=== PATIENT | female | born 1940 | race Caucasian/White ===

== ENCOUNTER 2023-01-22 15:45 | Inpatient (IN) ==
--- NOTE | 2023-01-22 17:16 | Emergency Department Note ---
Impression & Plan Closed fracture of left hip ED Provider Note INFORMANT: Patient ED PROVIDER(S): Edward Berry DO CHIEF COMPLAINT: Left hip pain PLAN: Disposition: Admission Outpatient prescription management: none Discussion with: I spoke with the hospitalist, who will see the patient for admission/observation and further evaluation and consultation. MEDICAL DECISION MAKING: This is a 82-year-old female who presents to the ED with a chief complaint of eft hip pain after a fall. The patient states that she was doing an exercise class this afternoon around 315 and she leaned to the left to floor causing himself to fall. She landed on her left hip causing pain in that area. Denies striking her head. Denies any other areas of pain. The patient on physical exam has no obvious head injury. Neck is without tenderness. Thorax is without tenderness. Upper extremities are without any discomfort or pain. Full range of motion of the joints. No midline tenderness of the spine. Abdomen soft and nontender. Tenderness to the left hip although she does have some discomfort with rotation of the left hip. She does have full range of motion with minimal discomfort. The patient does not have any pain with axial loading. No other areas of discomfort in the lower extremities. No shortening or rotation distal perfusion is good. Vital signs are normal. X-ray of the left hip reveals a nondisplaced intertrochanteric hip fracture. Chest x-ray is clear.Blood work did not show concerning anemia, leukocytosis or electrolyte abnormality. Kidney function was normal. Triage Nursing notes reviewed. Vital Signs: reviewed Prior /Outside records reviewed: none Differential diagnosis: Soft tissue injury, fracture, dislocation, other. Diagnostics, as interpreted by me: 12 lead ECG: Sinus rhythm rate of 70. No ST elevation. No PVCs. Normal QTc. Cardiac Monitoring ordered: [none] Medical decision rules: [none] Imaging studies: Left hip and pelvis: Intertrochanteric left hip fracture nondisplaced. Chest x-ray: No acute disease. No pneumonia. No rib fracture Procedures: none. Critical care: none. HPI: See MDM above. PAST MEDICAL HISTORY: See Below PAST SURGICAL HISTORY: See Below SOCIAL HISTORY: See Below HOME MEDICATIONS: See Below ALLERGIES: See Below VITALS: See Below PHYSICAL EXAMINATION: See MDM for positive findings otherwise unremarkable. CONSTITUTIONAL/VITAL SIGNS: Reviewed GENERAL:done as appropriate INTEGUMENTARY: done as appropriate HEAD: done as appropriate EYES: done as appropriate RESPIRATORY: done as appropriate CARDIOVASCULAR:done as appropriate GI/ABDOMEN:done as appropriate EXTREMITIES: done as appropriate NEUROLOGICAL: done as appropriate PSYCHIATRIC:done as appropriate MUSCULOSKELETAL:done as appropriate TRIAGE NURSING DOCUMENTATION REVIEWED. Past Med/Surg History Medical History Vitamin D deficiency Family History Mother Hypertension Melanoma Cancer on nose Sister Tumor anal H/O kidney removal Grandmother (Maternal) Ovarian cancer Denies family history of Prostate cancer Breast cancer Colorectal cancer Social History Smoking Status: Never smoker Hx Alcohol Use: No Preferred Language: Estonian marital status: current occupational status: retired Feels Safe at Home: Yes Allergies Allergies Allergy/AdvReac Type Severity Reaction Status Date / Time codeine AdvReac Mild Verified 01/06/23 12:04 Home Meds Home Medications Medication Instructions Recorded Confirmed lysine 500 mg tablet (L-Lysine) 1,000 mg PO AMHS 05/29/22 01/22/23 zinc gluconate-zinc picolinate 30 30 mg PO QAM 05/29/22 01/22/23 mg capsule cholecalciferol (vitamin D3) 25 1,000 unit PO QAM 01/09/23 01/22/23 mcg (1,000 unit) capsule cyanocobalamin (vitamin B-12) 1,000 mcg PO 3XWK 01/22/23 01/22/23 1,000 mcg tablet (Vitamin B-12) turmeric 450 mg-turmeric root 1 cap PO QAM 01/22/23 01/22/23 extract 50 mg capsule Previous Rx's Medication Instructions Recorded Flutter Valve #1 ea 08/09/22 albuterol sulfate 90 mcg/actuation 2 inh inhalation QID PRN shortness 08/09/22 aerosol inhaler of breath or wheezing #8.5 grams potassium chloride 20 mEq 20 meq PO BID #60 tabs 10/10/22 tablet,extended release hydrochlorothiazide 25 mg tablet 25 mg PO BID #180 tabs 01/06/23 Results & Data (ED) Vital Signs Vital Signs - 24 hr 01/22/23 15:52 01/22/23 18:24 Temperature 36.7 C Temperature Source Oral Pulse Rate 74 Pulse Rate [Finger] 79 Respiratory Rate 20 18 Respiratory Effort / Characteristics Non-Labored Non-Labored Respiratory Depth Normal Normal Blood Pressure 132/84 Blood Pressure [Left Arm] 170/77 H Blood Pressure Mean 100 Blood Pressure Mean [Left Arm] 108 Pulse Oximetry 97 96 Oxygen Delivery Method Room Air Sepsis Recent Fever Within 48 Hours No Sepsis New/Unexplained Change in Mental Status No Sepsis Action Taken by Nursing No Action Required Laboratory Data 01/22/23 17:25 01/22/23 17:25 Lab Results 01/22/23 01/22/23 Range/Units 17:25 17:25 WBC 12.94 H (4.8-10.8) K/ul RBC 4.71 (4.20-5.40) M/uL Hgb 13.8 (12.0-16.0) g/dl Hct 41.0 (37.0-47.0) % MCV 87.0 (80.0-100.0) fL MCH 29.3 (25.0-34.0) pg MCHC 33.7 (32.0-36.0) g/dL RDW Std Deviation 43.8 (36.4-46.3) fL RDW Coeff of Cynthia 13.7 (11.5-14.5) % Plt Count 422 H (130-400) K/uL MPV 8.7 L (9.4-12.4) fL Immature Gran % (Auto) 0.7 % Neut % (Auto) 85.9 % Lymph % (Auto) 6.3 % [place] % (Auto) 5.1 % Eos % (Auto) 1.5 % Baso % (Auto) 0.5 % Neut # (Auto) 11.11 H (1.40-6.50) K/uL Lymph # (Auto) 0.82 L (1.2-3.4) K/uL [place] # (Auto) 0.66 H (0.11-0.59) K/uL Eos # (Auto) 0.20 (0-0.50) K/uL Baso # (Auto) 0.06 (0-0.2) K/uL Immature Gran # (Auto) 0.09 (0.01-0.20) K/uL Sodium 139 (136-145) mmol/L Potassium 3.8 (3.5-5.1) mmol/L Chloride 99 (98-107) mmol/L Carbon Dioxide 37 H (21-32) mmol/L Anion Gap 3 (3-11) BUN 25 H (6-23) mg/dl Creatinine 0.92 (0.6-1.2) mg/dl Est Cr Clr Drug Dosing 39.9 ml/min Est GFR ( Amer) 67.7 ml/min Est GFR (Non-Af Amer) 58.4 ml/min BUN/Creatinine Ratio 27.2 H (10-20) Glucose 108 H (70-99(Fasting)) mg/dl Calcium 9.4 (8.6-10.3) mg/dl Total Bilirubin 0.5 (0.2-1.0) mg/dl AST 19 (13-39) U/L ALT 18 (7-52) U/L Alkaline Phosphatase 94 (34-104) U/L Total Protein 6.3 (6.0-8.3) gm/dl Albumin 3.6 (3.4-5.0) gm/dl Globulin 2.7 (2.5-4.0) gm/dl Albumin/Globulin Ratio 1.3 (0.9-2) Imaging Data Radiologist's Impression: Hip/Pelvis X-Ray 01/22/23 16:10 XR hip LT 2V w pelvis CLINICAL HISTORY: Left hip pain following fall. COMPARISON: CT of the abdomen and pelvis August 02, 2022. FINDINGS: Sacroiliac joints and symphysis pubis are intact. There is an acute nondisplaced intertrochanteric fracture of the left femur. No additional fractures are identified on this examination. Severe right and mild to moderate left hip osteoarthritis is present. IMPRESSION: Acute nondisplaced intertrochanteric fracture of the left femur. ACT 112: Negative or not required by law. Electronically signed by: Dante Olmos M.D. 01/22/2023 5:18 PM Chest X-Ray 01/22/23 17:12 XR chest 1V portable CLINICAL HISTORY: hip fx COMPARISON STUDY: Chest CT July 25, 2021. FINDINGS: No pneumothorax or pleural effusion is present. Cardiomediastinal silhouette is stable. Bronchiectasis and reticulonodular interstitial thickening with lower lung predominance is similar to CT of July 25, 2021. No definite consolidation to suggest bacterial pneumonia biapical opacities favor scarring. IMPRESSION: 1. No acute cardiopulmonary findings. 2. No significant change in bronchiectasis and reticulonodular interstitial thickening which favors a chronic infectious or inflammatory etiology. ACT 112: Negative or not required by law. Electronically signed by: Dante Olmos M.D. 01/22/2023 6:08 PM Discharge Plan Visit Data Chief Complaint: Fall ED Provider: Edward Berry Discharge Problem: Closed fracture of left hip Patient Disposition: Being Evaluated by Hospitalist Forms Stand Alone Forms: My [facility] Prescriptions Prescriptions: No Action cholecalciferol (vitamin D3) 25 mcg (1,000 unit) capsule 1,000 unit PO QAM albuterol sulfate 90 mcg/actuation HFA aerosol inhaler 2 inh inhalation QID PRN (Reason: shortness of breath or wheezing) Qty: 8.5 3RF (DME) Flutter Valve Device See Rx Instructions .ROUTE .MEDSUPPLY Qty: 1 0RF Rx Instructions: As directed hydrochlorothiazide 25 mg tablet 25 mg PO BID Qty: 180 3RF lysine [L-Lysine] 500 mg tablet 1,000 mg PO AMHS zinc gluconate-zinc picolinate 30 mg capsule 30 mg PO QAM potassium chloride 20 mEq tablet extended release 20 meq PO BID Qty: 60 11RF cyanocobalamin (vitamin B-12) [Vitamin B-12] 1,000 mcg Tablet 1,000 mcg PO 3XWK turmeric-turmeric root extract 450-50 mg Capsule 1 cap PO QAM Referrals Referrals: Marina Loredo [Primary Care Provider] -
--- NOTE | 2023-01-22 17:19 | XRay Report ---
XR hip LT 2V w pelvis CLINICAL HISTORY: Left hip pain following fall. COMPARISON: CT of the abdomen and pelvis August 02, 2022. FINDINGS: Sacroiliac joints and symphysis pubis are intact. There is an acute nondisplaced intertroc hanteric fracture of the left femur. No additional fractures are identified on this examination. [place] re right and mild to moderate left hip osteoarthritis is present. IMPRESSION: Acute nondisplaced intertrochanteric fracture of the left femur. ACT 112: Negative or not required by law. Electronically signed by: Dante Olmos M.D. 01/22/2023 5:18 PM
[2023-01-22 17:55] LABS: Basophils # (auto) 0.06 K/uL (0-0.2); Basophils % (auto) 0.5 %; Eosinophils % (auto) 1.5 %; Hemoglobin 13.8 g/dl (12.0-16.0); Immature Granulocytes # (auto) 0.09 K/uL (0.01-0.20); Immature Granulocytes % (auto) 0.7 %; Lymphocytes # (auto) 0.82 K/uL (1.2-3.4); Lymphocytes % (auto) 6.3 %; Mean Corpuscular Hemoglobin 29.3 pg (25.0-34.0); Mean Corpuscular Hgb Conc 33.7 g/dL (32.0-36.0); Mean Platelet Volume 8.7 fL (9.4-12.4); Monocytes # (auto) 0.66 K/uL (0.11-0.59); Monocytes % (auto) 5.1 %; Neutrophils # (auto) 11.11 K/uL (1.40-6.50); Neutrophils % (auto) 85.9 %; Platelet Count 422 K/uL (130-400); RDW Coefficient of Variation 13.7 % (11.5-14.5); RDW Standard Deviation 43.8 fL (36.4-46.3); Red Blood Count 4.71 M/uL (4.20-5.40); White Blood Count 12.94 K/ul (4.8-10.8)
--- NOTE | 2023-01-22 18:10 | XRay Report ---
XR chest 1V portable CLINICAL HISTORY: hip fx COMPARISON STUDY: Chest CT July 25, 2021. FINDINGS: No pneumothorax or pleural effusion is present. Cardiomediastinal silhouette is stable. Bro nchiectasis and reticulonodular interstitial thickening with lower lung predominance is similar to CT of July 25, 2021. No definite consolidation to suggest bacterial pneumonia biapical opacities fav or scarring. IMPRESSION: 1. No acute cardiopulmonary findings. 2. No significant change in bronchiectasis and reticulonodular interstitial thickening which favors a chronic infectious or inflammatory etiology. ACT 112: Negative or not required by law. Electronically signed by: Dante Olmos M.D. 01/22/2023 6:08 PM
--- NOTE | 2023-01-22 18:12 | History & Physical Report ---
Date of Service January 22, 2023 Assessment & Plan (1) Closed fracture of left hip: Plan: Pain management with acetaminophen 1g PO TID and morphine 2-4mg IV PRN NPO after midnight, LR @ 100ml/hr Consult orthopedics Vitamin D level in AM, follow up with PCP regarding possible osteoporosis diagnosis Revised cardiac risk index - 0, 3.9% 30 day risk of , [place] or cardiac arrest. Patient is medically optimized for surgery at this time. (2) History of kidney stones: Plan: Continue HCTZ, hold morning of surgery. (3) Bronchiectasis: Plan: Diagnosed with idiopathic bronchiectasis per pulmonology outpatient note. Uses flutter valve. No acute changes per patient. Actually doing better since moving to [place]. (4) Mitral valve prolapse: Plan: Mild prolapse of posterior mitral leaflet Plan VTE Prophylaxis - chemical deferred pending surgery, SCD Diet - regular, NPO after midnight Disposition - admit to med/surg Admission and Anticipated Discharge Date Admission Date: January 22, 2023 History of Present Illness Chief Complaint: Left groin pain Primary Care Provider: [facility] Veronica Gill is an 82 year old female who lives in independent living at [facility] who presents to the ER with left hip pain. This occurred after she fell from standing on to her left leg doing an exercise class. She reports left leg pain since and unable to fully weight bear. No dizziness, shortness of breath or chest pain prior to falling. She did not hit her head or lose consciousness. XR in the ER showed an acute nondisplaced intertrochanteric fracture of the left femur. She was referred to medicine for admission and ongoing management of this. Current hip pain 4/10, worse with any movement. Allergies Allergy/AdvReac Type Severity Reaction Status Date / Time codeine AdvReac Mild Verified 01/06/23 12:04 Home Medications Medication Instructions Recorded Confirmed Type lysine 500 mg tablet (L-Lysine) 1,000 mg PO AMHS 05/29/22 01/22/23 History zinc gluconate-zinc picolinate 30 30 mg PO QAM 05/29/22 01/22/23 History mg capsule Flutter Valve #1 ea 08/09/22 01/22/23 Rx albuterol sulfate 90 mcg/actuation 2 inh inhalation QID PRN shortness 08/09/22 01/22/23 Rx aerosol inhaler of breath or wheezing #8.5 grams potassium chloride 20 mEq 20 meq PO BID #60 tabs 10/10/22 01/22/23 Rx tablet,extended release hydrochlorothiazide 25 mg tablet 25 mg PO BID #180 tabs 01/06/23 01/22/23 Rx cholecalciferol (vitamin D3) 25 1,000 unit PO QAM 01/09/23 01/22/23 History mcg (1,000 unit) capsule cyanocobalamin (vitamin B-12) 1,000 mcg PO 3XWK 01/22/23 01/22/23 History 1,000 mcg tablet (Vitamin B-12) glutathione 500 mg capsule 500 mg PO HS 01/22/23 01/22/23 History turmeric 450 mg-turmeric root 1 cap PO QAM 01/22/23 01/22/23 History extract 50 mg capsule Past Med/Surg History Medical History History of kidney stones Vitamin D deficiency Surgical History History of lithotripsy Family History Mother Hypertension Melanoma Cancer on nose Sister Tumor anal H/O kidney removal Grandmother (Maternal) Ovarian cancer Denies family history of Prostate cancer Breast cancer Colorectal cancer Social History Smoking Status: Never smoker Hx Alcohol Use: No Preferred Language: Libyan marital status: current occupational status: retired Feels Safe at Home: Yes Review of Systems Review of Systems: All systems reviewed & are unremarkable except as noted in HPI & below Physical Exam Constitutional: WD/WN, vitals as above Eyes: + anicteric sclerae; normal pupil size ENMT: external ear and nose normal, oropharynx normal Neck: trachea midline, no thyromegaly Respiratory: normal respiratory effort, lungs clear to auscultation Cardiovascular: RRR, no murmur, no edema Gastrointestinal (Abdomen): normal bowel sounds, soft, nontender, no hepatosplenomegaly Musculoskeletal: Left groin pain on int/ext rotation left hip, not shortened or externally rotated, NV intact distally Skin: no rashes, warm and dry Neurologic: moves all extremities (limited movement of LLE due to pain) and awake; not confused Psychiatric: A+Ox3, euthymic affect Results & Data Results & Data Vital Signs (Past 12 Hours) Vital Signs Temp Pulse Resp BP Pulse Ox O2 Del Method 01/22/23 15:52 36.7 C 74 20 132/84 97 Room Air Laboratory Results Abnormal lab results 01/22/23 Range/Units 17:25 WBC 12.94 H (4.8-10.8) K/ul Plt Count 422 H (130-400) K/uL MPV 8.7 L (9.4-12.4) fL Neut # (Auto) 11.11 H (1.40-6.50) K/uL Lymph # (Auto) 0.82 L (1.2-3.4) K/uL [place] # (Auto) 0.66 H (0.11-0.59) K/uL Diagnostic Findings XR hip LT 2V w pelvis CLINICAL HISTORY: Left hip pain following fall. COMPARISON: CT of the abdomen and pelvis August 02, 2022. FINDINGS: Sacroiliac joints and symphysis pubis are intact. There is an acute nondisplaced intertrochanteric fracture of the left femur. No additional fractures are identified on this examination. Severe right and mild to moderate left hip osteoarthritis is present. IMPRESSION: Acute nondisplaced intertrochanteric fracture of the left femur. Medications Administered ER Medications Given: None ECG Rate (beats per minute): 71 Rhythm: normal sinus Findings: + other (poor baseline adversely affects read); no acute ischemic change Comparison ECG Date: no prior available Code Status & VTE Plan Code Status Full VTE Prophylaxis Plan VTE Prophylaxis will be ordered: Yes PG Care Time/CCT Total # of Minutes Spent Total Time Spent with Patient: Total time spent is greater than 50% in coordination of care (as documented) at patient's floor/unit and/or counseling patient: Coding Level of Care Code 98270 INT INP/OBS CARE 2/55MIN Diagnoses Closed fracture of left hip S72.002A History of kidney stones Z87.442 Bronchiectasis J47.9 Mitral valve prolapse I34.1
[2023-01-22 18:16] LABS: Albumin Globulin Ratio 1.3 (0.9-2); Albumin Level 3.6 gm/dl (3.4-5.0); BUN Creatinine Ratio 27.2 (10-20); Bilirubin,Total 0.5 mg/dl (0.2-1.0); Calcium 9.4 mg/dl (8.6-10.3); Creatinine Clr Calc Pharmacy 39.9 ml/min; Est GFR (African American) 67.7 ml/min; Est GFR (Non-African American) 58.4 ml/min; Globulin 2.7 gm/dl (2.5-4.0); Potassium 3.8 mmol/L (3.5-5.1); Total Protein 6.3 gm/dl (6.0-8.3)
[2023-01-22] MEDS ORDERED: ACETAMINOPHEN 1,000 MG/100 ML VIAL IV STA (18:28)
[2023-01-22 18:50] LABS: INR 1.1 (0.9-1.1); Partial Thromboplastin Time 27.3 Seconds (21.0-31.0); Prothrombin Time 11.9 Seconds (9.0-12.0)
[2023-01-22] MEDS ORDERED: GLUTATHIONE 500 MG PO SCH (22:28)
[2023-01-22] MEDS: POTASSIUM CHLORIDE CRTAB 20 MEQ TABCR PO SCH (23:00)
[2023-01-22] MEDS: hydroCHLOROthiazide 25 MG TAB PO SCH (23:01)
[2023-01-22] MEDS ORDERED: bisacodyL 10 MG SUPP PR PRN (23:02)
[2023-01-22] MEDS ORDERED: MoRPHine SULFATE 4 MG/ML 1 ML CARP\\VIAL IV PRN (23:02)
[2023-01-22] MEDS ORDERED: MAGNESIUM HYDROXIDE SUSP 30 ML UDC PO PRN (23:02)
[2023-01-22] MEDS ORDERED: NALOXONE HCL 0.4 MG/1 ML VIAL/CARP IV PRN (23:02)
[2023-01-22] MEDS ORDERED: MoRPHine SULFATE 2 MG/ML CARP IV PRN (23:02)
[2023-01-22] MEDS ORDERED: LACTATED RINGER'S 1,000 ML IV STA (23:05)
[2023-01-23] MEDS: LACTATED RINGER'S 1,000 ML IV SCH ×3 (01:23→22:04)
[2023-01-23] MEDS: POTASSIUM CHLORIDE CRTAB 20 MEQ TABCR PO SCH ×2 (07:55→21:29)
[2023-01-23] MEDS: ACETAMINOPHEN 500 MG TAB PO SCH ×3 (07:55→21:28)
[2023-01-23] MEDS: CHOLECALCIFEROL 1,000 UNITS 25 MCG TAB PO SCH (07:56)
[2023-01-23 09:01] LABS: Basophils # (auto) 0.04 K/uL (0-0.2); Basophils % (auto) 0.4 %; Eosinophils % (auto) 0.9 %; Hematocrit (blood only) 39.3 % (37.0-47.0); Hemoglobin 13.5 g/dl (12.0-16.0); Immature Granulocytes % (auto) 3.6 %; Lymphocytes # (auto) 0.82 K/uL (1.2-3.4); Lymphocytes % (auto) 7.4 %; Mean Corpuscular Hemoglobin 29.2 pg (25.0-34.0); Mean Corpuscular Hgb Conc 34.4 g/dL (32.0-36.0); Mean Corpuscular Volume 84.9 fL (80.0-100.0); Mean Platelet Volume 8.7 fL (9.4-12.4); Monocytes # (auto) 0.71 K/uL (0.11-0.59); Monocytes % (auto) 6.4 %; Neutrophils # (auto) 8.96 K/uL (1.40-6.50); Neutrophils % (auto) 81.3 %; Platelet Count 353 K/uL (130-400); RDW Coefficient of Variation 13.7 % (11.5-14.5); RDW Standard Deviation 42.5 fL (36.4-46.3); Red Blood Count 4.63 M/uL (4.20-5.40); White Blood Count 11.03 K/ul (4.8-10.8)
[2023-01-23 09:14] LABS: BUN Creatinine Ratio 25.9 (10-20); Calcium 8.5 mg/dl (8.6-10.3); Creatinine Clr Calc Pharmacy 57.7 ml/min; Est GFR (African American) 100.2 ml/min; Est GFR (Non-African American) 86.4 ml/min; Potassium 3.1 mmol/L (3.5-5.1)
--- NOTE | 2023-01-23 10:32 | Electrocardiogram Report ---
Test Reason : Blood Pressure : / mmHG Vent. Rate : 071 BPM Atrial Rate : 071 BPM P-R Int : 214 ms QRS Dur : 080 ms QT Int : 408 ms P-R-T Axes : 079 074 071 degrees QTc Int : 443 ms Poor data quality, interpretation may be adversely affected Sinus rhythm with 1st degree A-V block Anterior infarct , age undetermined Abnormal ECG No previous ECGs available Confirmed by Yao Malik ([id number]) on 01/23/2023 10:32:23 AM Referred By: Marina Loredo Confirmed By:Yao Malik
--- NOTE | 2023-01-23 12:06 | Orthopedic Consultation ---
Date of Service January 23, 2023 Assessment & Plan (1) Closed intertrochanteric fracture of left femur: 82-year-old reasonably healthy and active female sustained fall resulting in a left intertrochanteric femur fracture. I reviewed her diagnosis, prognosis, and treatment options and strongly suggested that she consider fracture fixation as soon as today. She asked appropriate questions, demonstrated a good understanding, and wanted to proceed with surgery. I reviewed that the risks of surgery include, but are not limited to, infection, neurovascular injury, blood loss, nonunion, malunion, need for repeat or revision surgery, implant complications and symptomatic hardware, blood clots, pain syndromes, and complications related anesthesia. Informed consent will be documented after this discussion. Please keep n.p.o. and on bedrest Plan to proceed with left hip trochanteric fixation nail this afternoon. History of Present Illness Reason for Consultation: Left hip fracture Requesting Physician: . Attending Physician: Ap Porter MD 82-year-old female sustained fall yesterday resulting in inability to bear weight and significant pain. She was brought to the [facility] emergency room where a intertrochanteric fracture of the left hip was diagnosed. She was admitted to the hospitalist service for medical work-up and clearance. She denies any significant hip pain in her past. She desires to return to more active lifestyle. No use of assistive devices prior to this fall which occurred during exercise. She does complain of pain radiating down her thigh towards her knee. Allergies Allergy/AdvReac Type Severity Reaction Status Date / Time codeine AdvReac Mild Verified 01/06/23 12:04 Home Medications Medication Instructions Recorded Confirmed Type lysine 500 mg tablet (L-Lysine) 1,000 mg PO AMHS 05/29/22 01/22/23 History zinc gluconate-zinc picolinate 30 30 mg PO QAM 05/29/22 01/22/23 History mg capsule Flutter Valve #1 ea 08/09/22 01/22/23 Rx albuterol sulfate 90 mcg/actuation 2 inh inhalation QID PRN shortness 08/09/22 01/22/23 Rx aerosol inhaler of breath or wheezing #8.5 grams potassium chloride 20 mEq 20 meq PO BID #60 tabs 10/10/22 01/22/23 Rx tablet,extended release hydrochlorothiazide 25 mg tablet 25 mg PO BID #180 tabs 01/06/23 01/22/23 Rx cholecalciferol (vitamin D3) 25 1,000 unit PO QAM 01/09/23 01/22/23 History mcg (1,000 unit) capsule cyanocobalamin (vitamin B-12) 1,000 mcg PO 3XWK 01/22/23 01/22/23 History 1,000 mcg tablet (Vitamin B-12) glutathione 500 mg capsule 500 mg PO HS 01/22/23 01/22/23 History turmeric 450 mg-turmeric root 1 cap PO QAM 01/22/23 01/22/23 History extract 50 mg capsule Past Med/Surg History Medical History History of kidney stones Vitamin D deficiency Surgical History History of lithotripsy Family History Mother Hypertension Melanoma Cancer on nose Sister Tumor anal H/O kidney removal Grandmother (Maternal) Ovarian cancer Denies family history of Prostate cancer Breast cancer Colorectal cancer Social History Smoking Status: Never smoker Second Hand Exposure: No; Do You Dip or Chew Tobacco: No; Tobacco Cessation Education Requested by Patient: No Hx Alcohol Use: No Hx Substance Use: No Preferred Language: [place] Communication Ability: [employer] Required: No Beliefs That Will Affect Care: None marital status: Current Living Situation: Spouse current occupational status: retired Other Information That Helps Us Care for You: No Feels Safe at Home: Yes Safety Concerns: Feels Safe At This Time Assistive Devices: None Review of Systems All systems reviewed & are unremarkable except as noted in HPI & below. Physical Exam LLE: No significant ecchymosis or skin compromise. Minimally tender about the hip and irritable with logroll. Nontender about the distal femur and knee. She can activate her quad. Positive DF/PF/EHL. Distally neurovascular intact. Results & Data Results & Data Laboratory Results H & H 01/22/23 01/23/23 Range/Units 17:25 08:14 Hgb 13.8 13.5 (12.0-16.0) g/dl Hct 41.0 39.3 (37.0-47.0) % Coagulation 01/22/23 Range/Units 17:25 INR 1.1 (0.9-1.1) Diagnostic Findings Radiographs of the hip and pelvis demonstrate a minimally displaced left intertrochanteric fracture with minimal extension into the lesser trochanter. Preserved joint space. PG Care Time/CCT Total # of Minutes Spent Total Time Spent with Patient: Total time spent is greater than 50% in coordination of care (as documented) at patient's floor/unit and/or counseling patient: Coding Level of Care Code 55203 IN/OBS CONSULT LVL 4,60M (57 - DECISION FOR SURGERY) Diagnoses Closed intertrochanteric fracture of left femur S72.142A
--- NOTE | 2023-01-23 14:23 | Hospitalist Progress Note ---
Date of Service January 23, 2023 Assessment & Plan (1) Closed fracture of left hip: Plan: Bedrest until surgical intervention completed. Appreciate orthopedic consultation. Hip nailing procedure later today, January 23. Pain control measures. (2) History of kidney stones: Plan: Stable. Treated with HCTZ (3) Bronchiectasis: Plan: Diagnosed with idiopathic bronchiectasis per pulmonology outpatient note. Uses flutter valve. No acute changes per patient. Actually doing better since moving to [place]. (4) Mitral valve prolapse: Plan: Mild prolapse of posterior mitral leaflet. Asymptomatic. No intervention needed at this time Plan VTE Prophylaxis - chemical deferred pending surgery, SCD Disposition - she currently resides at [facility]. She may need SNF placement temporarily after hip repair. OT and PT assessments pending postop Admission and Anticipated Discharge Date Admission Date: January 22, 2023 Subjective Alert and oriented. She has left hip pain only with movement. Orthopedic consultation noted. Surgical intervention with nailing procedure later today, January 23. Continue n.p.o. status and IV fluids for now Review of Systems Review of Systems: Constitutional-no fever or chills ENT-no blurred vision, no double vision, no epistaxis, no sore throat Respiratory-no cough, no wheezing, no shortness of breath Cardiac-no palpitations, no chest pain, no syncope GI-no nausea, vomiting, diarrhea, melena, hematochezia -no urinary retention, no urinary incontinence, no dysuria, no hematuria Musculoskeletal-left hip pain with movement due to underlying fracture Skin-no bruising, no rashes, no pruritus Neuro-no isolated weakness, no paresthesia, no weakness Psych-no depression, no anxiety Physical Exam Physical Exam: General-alert and oriented x3, no fevers, no chills HEENT-head atraumatic and normocephalic, pupils equal and reactive to light, extraocular muscles intact Neck-no lymphadenopathy or thyromegaly, trachea midline Chest-clear to auscultation percussion. No rales wheezing or rhonchi Cardiac-regular rate and rhythm, normal S1 and S2 Abdomen-normal bowel sounds, nontender, no hepatosplenomegaly Extremities-left hip tender to palpation. Markedly limited range of motion due to underlying fracture Neuro-cranial nerves II through XII intact, motor and sensory function within normal limits, strength symmetrical , no focal deficits Psych-normal affect, normal mood Results & Data Results & Data Vital Signs (Past 12 Hours) Vital Signs Temp Pulse Resp BP Pulse Ox O2 Del Method 01/23/23 07:00 36.7 C 75 16 155/72 H 94 Room Air Laboratory Results 01/23/23 08:14 01/23/23 08:14 PG Care Time/CCT Total # of Minutes Spent Total Time Spent with Patient: Total time spent is greater than 50% in coordination of care (as documented) at patient's floor/unit and/or counseling patient: Coding Level of Care Code 83808 SUB INP/OBS CARE 3/50MIN Diagnoses Closed fracture of left hip S72.002A History of kidney stones Z87.442 Bronchiectasis J47.9 Mitral valve prolapse I34.1
[2023-01-23] MEDS ORDERED: PROPOFOL IV EMULSION 10 MG/ML 20 ML VIAL IV ONE ×2 (17:48→18:06)
[2023-01-23] MEDS ORDERED: LIDOCAINE 2% 2 ML VIAL/AMP(20MG/ML) INFIL ONE (17:48)
[2023-01-23] MEDS ORDERED: fentaNYL citrate PF 100 MCG/2 ML VIAL ONE (17:48)
[2023-01-23] MEDS ORDERED: BUPIVACAINE/EPINEPHRINE 0.5% MPF 1:200,000 30 ML VIAL ONE (18:00)
[2023-01-23] MEDS ORDERED: ceFAZolin 2,000 MG/15 ML IV PUSH IV ONE (18:10)
[2023-01-23] MEDS ORDERED: ceFAZolin 2000MG 2,000 MG/15 ML SYR IV ONE (18:35)
[2023-01-23] MEDS ORDERED: ePHEDrine sulfate 50 MG/ML AMP ONE (19:15)
[2023-01-23] MEDS ORDERED: SODIUM CHLORIDE 0.9% PF INJ 10 ML VIAL ONE (19:15)
[2023-01-23] MEDS ORDERED: ONDANSETRON INJ 2 MG/ML 2 ML VIAL ONE (19:22)
--- NOTE | 2023-01-23 20:04 | Operative Report ---
PG Post Operative Report Pre & Post Diagnosis Operation Date: 01/23/23 09:35 Pre-Op Diagnosis: Left Hip Fracture Post-Op Diagnosis: Left Hip Fracture I identified the patient and participated in the time-out.: Yes Procedure Operation Date: 01/23/23 09:35 Actual Procedures p Left intertrochanteric hip fracture closed reduction and cephalomedullary fixation with Synthes trochanteric fixation nail (Left) - Edward Up MD Surgeon Edward Up MD Student Counselor None Estimated Blood Loss 100 Findings See Below Stable pattern, minimal comminution, solid cortices. All Synthes implants: 10 mm/130 degree titanium cannulated trochanteric fixation nail of 170 mm length. 11.0 mm titanium helical blade of 85 mm length. Distal interlock screw measuring 5 x 34 mm. Specimens none Anesthesia Type MAC Spinal Regional Complications none Disposition Accompanied Patient To Recovery: No Disposition: Surgical ICU Indications 82-year-old female sustained a fall and direct impact to her left hip resulting in immediate pain and inability to bear weight. She was diagnosed with a intertrochanteric hip fracture. I explained the diagnosis, prognosis, and recommended treatment of surgical stabilization. We reviewed the risks, benefits, and expected rehabilitation in detail, as outlined in my preoperative consult note. She desired to proceed. We confirmed the plan with her in the preop holding area. Informed consent was documented there. Description of Procedure On the day of surgery should be was greeted in the preoperative holding area and the informed consent was reviewed and confirmed. The surgical site was then identified by the patient and signed by myself. The patient was taken to the operating placed by the OR table and anesthesia was induced. The patient is then positioned on the fracture table. All song prominences were well padded. The operative foot was placed in the fracture boot with abundant padding. The well leg was secured. We then positioned the lower extremities in a scissor fashion with a non-op leg flexed down to allow visualization with fluoroscopy which was confirmed before we prepped and draped. Surgical timeout was called and verified by all present. Antibiotics were infused, and equipment was available and functional. The procedure was initiated with a closed reduction maneuvers. Gentle in-line traction pulled the fracture out to length. The limb was then internally rotated to reduce the proximal femur. Flexion and adduction were used to adjust the reduction and allow access to the greater trochanter. We had adequate reduction prior to prepping and draping. The leg was then prepped and draped in usual sterile fashion. Surgical timeout was reconfirmed. We initiated the surgical internal fixation portion with finding the start point with the tip of the greater trochanter. Fluoroscopic guidance was used and a small poke hole was established. The start point was confirmed on fluoroscopy in AP and lateral planes and the pin was advanced using a mallet. An incision was made about the pin to allow access for the reamers. The pin was then advanced past the lesser trochanter, and its position was confirmed using AP and lateral fluoroscopy. Using the protective sleeve, the opening reamer was advanced under power with fluoroscopic guidance over the guidepin. It was advanced slowly. Given the good bone quality and stable typical intertrochanteric fracture pattern, a short 10 mm x 170 mm nail was loaded onto the jig and advanced manually down the canal, while ensuring maintenance of the reduction on fluoroscopy. We then tapped it down into place until we achieve the good position for our cephalo-medullary screw. The cannula was placed on the jig to allow positioning of the cephalo-medullary screw. The skin incision was made in the appropriate spot. The jig cannulas were then placed against the lateral cortex. The cephalo-medullary screw guidepin was advanced towards the femoral head. The center-center position was confirmed on fluoroscopy in AP and lateral planes. The length of the screw was measured off the guide. The helical blade screw was then opened on the back table and prepared on the screwdriver. The lateral cortical opening drill, followed by the triple drill reamer for the helical blade was advanced under fluoroscopic guidance. The helical blade was advanced over the guidepin to appropriate position. The helical blade was locked in rotation and then the traction was taken off. Fluoroscopy confirmed maintenance of reduction and adequate position of the implant. The compression sleeve was then advanced against the lateral femur to improve the trochanteric-shaft reduction and compress the intertrochanteric region fracture. The jig was used for the distal interlock screw. The cannulas were advanced against skin to gayle incision location. The incision was made and the cannulas advanced against bone. The Synthes drill bit was then advanced in the cannulas for bicortical drilling under flouroscopy. Length was measured using the drill bit. The final 5mm interlock screw was placed and position confirmed with fluoroscopy. This completed the fixation of the fracture. Fluoroscopy was used in both AP and lateral planes to evaluate the entirety of the fracture and implant. Reduction and implant positions were acceptable. The wounds were then thoroughly irrigated with bulb syringe and normal saline. The deep fascial layer was approximated with 0 Vicryl suture. The dermal layer was approximated using 2-0 Vicryl suture. A total of 30 cc of half percent Marcaine with epinephrine was infused about the incisions and deep around the trochanter. The final skin closure was completed with radha. Wounds were dressed with sterile Xeroform, sterile gauze, and Tegaderm over ABDs. The patient tolerated procedure well, awoke from anesthesia without complication, was extubated in the operating room, and transferred to the PACU in stable condition. Disposition: The patient be weightbearing as tolerated. I recommended routine DVT prophylaxis consisting of low molecular weight heparin while an inpatient and transition to oral aspirin, if tolerable, as the patient transitions out of the hospital. DVT prophylaxis should last 6 weeks. 24 hours of antibiotic prophylaxis should be continued. I attest to the content of the Intraoperative Record and any orders documented therein. Any exceptions are noted below.
--- NOTE | 2023-01-23 20:16 | Anesthesiology Progress Note ---
Date of Service January 23, 2023 Anesthesia Post Procedure Vital Signs Vital Signs: Temp Pulse Pulse Pulse Resp BP BP 01/23/23 20:10 87 19 158/83 H 01/23/23 20:05 88 10 L 156/90 H 01/23/23 19:57 37.3 C 98 H 16 152/85 H 01/23/23 17:20 36.9 C 93 H 22 149/92 H 01/23/23 14:33 36.8 C 74 20 163/84 H 01/23/23 07:00 36.7 C 75 16 155/72 H 01/23/23 00:39 36.6 C 81 20 166/78 H 01/22/23 21:54 83 18 151/78 H 01/22/23 20:25 87 18 168/96 H Pulse Ox O2 Del Method O2 Flow Rate 01/23/23 20:10 95 Oxymask 2 01/23/23 20:05 98 Oxymask 3 01/23/23 19:57 96 Oxymask 5 01/23/23 17:20 93 Nasal Cannula 2 01/23/23 14:33 95 Room Air 01/23/23 07:00 94 Room Air 01/23/23 00:39 93 Room Air 01/22/23 21:54 94 01/22/23 20:25 94 Room Air Pain Intensity Left Thigh: Pain Intensity: 5 Transfer of Care Handoff Completed per policy Notes Mental Status: alert / awake / arousable Patient Amnestic to Procedure: Yes Nausea / Vomiting: adequately controlled Pain: adequately controlled Airway Patency, RR, SpO2: stable & adequate BP & HR: stable & adequate Hydration State: stable & adequate Neuraxial Anesthesia: was administered and sensory block is resolving Anesthetic Complications: no major complications apparent and Pt Satisfied with anesthetic care
[2023-01-23] MEDS ORDERED: oxyCODONE HCL IR 5 MG TAB (IMMEDIATE RELEASE) PO PRN ×2 (21:18)
[2023-01-23] MEDS: hydroCHLOROthiazide 25 MG TAB PO SCH (21:29)
[2023-01-23] MEDS: DOCUSATE SODIUM/SENNA 50/8.6MG TAB PO SCH (21:30)
[2023-01-23] MEDS: ASPIRIN 81 MG ECTAB PO SCH (22:03)
[2023-01-24] MEDS: ceFAZolin 2000MG 2,000 MG/15 ML SYR IV SCH ×2 (01:36→10:18)
--- NOTE | 2023-01-24 07:49 | Fluoroscopy Report ---
FL hip LT 2-3V CLINICAL HISTORY: LT TROCH NAIL COMPARISON STUDY: Left hip 01/22/2023. FLUOROSCOPY TIME: 55 seconds FLUOROSCOPY IMAGES: 5 Ka,r: 5.3 mGy FINDINGS: Status post internal fixation of the left hip fracture with a proximal femoral intramedulla ry kyle and interlocking femoral neck pin. The hardware appears intact. Alignment appears anatomic. IMPRESSION: Fluoroscopic assistance as above. ACT 112: Negative or not required by law. Electronically signed by: Jett Rodgers M.D. 01/24/2023 7:46 AM
--- NOTE | 2023-01-24 08:07 | XRay Report ---
XR femur LT 2V routine CLINICAL HISTORY: Postoperative evaluation. COMPARISON: Pelvis and left hip radiographs January 22, 2023. FINDINGS: Interval internal fixation of the intertrochanteric fracture of the left femur with trocha nteric nail is noted. Hardware is intact. Fracture alignment appears anatomic. There are no unexpecte d radiopaque foreign bodies. There are skin radha. IMPRESSION: Expected findings following internal fixation of the intertrochanteric fracture of the le ft femur. ACT 112: Negative or not required by law. Electronically signed by: Dante Olmos M.D. 01/24/2023 8:06 AM
[2023-01-24] MEDS: hydroCHLOROthiazide 25 MG TAB PO SCH ×2 (08:14→19:55)
[2023-01-24] MEDS: POTASSIUM CHLORIDE CRTAB 20 MEQ TABCR PO SCH ×2 (08:14→19:55)
[2023-01-24] MEDS: ACETAMINOPHEN 500 MG TAB PO SCH ×3 (08:14→19:53)
[2023-01-24] MEDS: CHOLECALCIFEROL 1,000 UNITS 25 MCG TAB PO SCH (08:14)
--- NOTE | 2023-01-24 08:19 | Orthopedic Progress Note ---
Date of Service January 24, 2023 Assessment & Plan (1) Closed intertrochanteric fracture of left femur: (2) History of hip surgery: Plan POD1 Left trochanteric fixation nail for intertrochanteric fracture. Making expected progress - PT/OT: WBAT and ROMAT - Finished 24h abx ppx today - VTE: aspirin therapy for 6 weeks - Pain per primary team - Dressing change POD3 Dispo: Per PT/OT recommendations. Please contact me via [employer] for any questions. Subjective Reports no pain. Has not been out of bed yet. Pleased so far. Wants to go home tomorrow Review of Systems All systems reviewed & are unremarkable except as noted in HPI & below. Physical Exam LLE: dressings c/d/i. thigh compartments soft. +DF/PF/EHL. DNVI. Constitutional WD/WN, vitals as above no acute distress and not intoxicated appearing Respiratory normal respiratory effort; no labored breathing Cardiovascular Extremities: normal capillary refill Results & Data Results & Data Laboratory Results H & H 01/22/23 01/23/23 Range/Units 17:25 08:14 Hgb 13.8 13.5 (12.0-16.0) g/dl Hct 41.0 39.3 (37.0-47.0) % Coagulation 01/22/23 Range/Units 17:25 INR 1.1 (0.9-1.1) Diagnostic Findings Postop xrays without complication. Anatomic alignment PG Care Time/CCT Total # of Minutes Spent Total Time Spent with Patient: Total time spent is greater than 50% in coordination of care (as documented) at patient's floor/unit and/or counseling patient: Coding Level of Care Code 69281 Post Operative Follow-Up Diagnoses Closed intertrochanteric fracture of left femur S72.142A History of hip surgery Z98.890
[2023-01-24 08:41] LABS: Basophils # (auto) 0.05 K/uL (0-0.2); Basophils % (auto) 0.4 %; Eosinophils # (auto) 0.15 K/uL (0-0.50); Eosinophils % (auto) 1.1 %; Hematocrit (blood only) 36.8 % (37.0-47.0); Hemoglobin 11.8 g/dl (12.0-16.0); Immature Granulocytes # (auto) 0.07 K/uL (0.01-0.20); Immature Granulocytes % (auto) 0.5 %; Lymphocytes # (auto) 0.45 K/uL (1.2-3.4); Lymphocytes % (auto) 3.3 %; Mean Corpuscular Hemoglobin 28.8 pg (25.0-34.0); Mean Corpuscular Hgb Conc 32.1 g/dL (32.0-36.0); Mean Corpuscular Volume 89.8 fL (80.0-100.0); Mean Platelet Volume 8.8 fL (9.4-12.4); Monocytes # (auto) 0.71 K/uL (0.11-0.59); Monocytes % (auto) 5.2 %; Neutrophils # (auto) 12.13 K/uL (1.40-6.50); Neutrophils % (auto) 89.5 %; Platelet Count 270 K/uL (130-400); RDW Coefficient of Variation 13.9 % (11.5-14.5); RDW Standard Deviation 45.3 fL (36.4-46.3); White Blood Count 13.56 K/ul (4.8-10.8)
[2023-01-24 08:50] LABS: Anion Gap 4 (3-11); Blood Urea Nitrogen 14 mg/dl (6-23); Calcium 8.2 mg/dl (8.6-10.3); Carbon Dioxide 37 mmol/L (21-32); Chloride 99 mmol/L (98-107); Creatinine Clr Calc Pharmacy 54.8 ml/min; Est GFR (African American) 98.5 ml/min; Glucose 101 mg/dl (70-99(Fasting)); Potassium 3.4 mmol/L (3.5-5.1); Sodium 140 mmol/L (136-145)
[2023-01-24] MEDS: ASPIRIN 81 MG ECTAB PO SCH ×2 (08:56→19:54)
[2023-01-24] MEDS: LACTATED RINGER'S 1,000 ML IV SCH ×2 (10:19→10:24)
[2023-01-24 11:08] LABS: Prealbumin < 3.0 mg/dl (20-40)
--- NOTE | 2023-01-24 14:34 | Hospitalist Progress Note ---
Date of Service January 24, 2023 Assessment & Plan (1) Closed fracture of left hip: Plan: Bedrest until surgical intervention completed. Appreciate orthopedic consultation. Open reduction internal fixation completed January 23. Postoperative day #1. Pain control measures. (2) History of kidney stones: Plan: Stable. Treated with HCTZ (3) Bronchiectasis: Plan: Diagnosed with idiopathic bronchiectasis per pulmonology outpatient note. Uses flutter valve. No acute changes per patient. Actually doing better since moving to [place]. (4) Mitral valve prolapse: Plan: Mild prolapse of posterior mitral leaflet. Asymptomatic. No intervention needed at this time (5) Acute respiratory failure with hypoxia: Plan: Due to bronchiectasis and probable pulmonary atelectasis postoperatively. Nebul izer treatments and incentive spirometry ordered. If this persist, will need chest CTA to rule out PE although this is less likely Plan VTE Prophylaxis -Lovenox subcu Disposition - she currently resides at [facility]. She may need SNF placement temporarily after hip repair. To be determined Admission and Anticipated Discharge Date Admission Date: January 22, 2023 Subjective Alert and oriented. No distress. She is now requiring oxygen per nasal cannula probably related to her underlying bronchiectasis with associated atelectasis postoperatively. I doubt she has suffered a PE. Hemoglobin is down slightly to 11.5. We will follow. Potassium is improving to 3.4. Continue oral potassium replacement. Nebulizer treatments and incentive spirometry have been ordered. Hopefully she can be discharged back to [facility] or [facility] tomorrow, January 25 Review of Systems Review of Systems: Constitutional-no fever or chills ENT-no blurred vision, no double vision, no epistaxis, no sore throat Respiratory-no cough, no wheezing, no shortness of breath Cardiac-no palpitations, no chest pain, no syncope GI-no nausea, vomiting, diarrhea, melena, hematochezia -no urinary retention, no urinary incontinence, no dysuria, no hematuria Musculoskeletal-left hip surgical site is unremarkable. Limited range of motion postoperatively Skin-no bruising, no rashes, no pruritus Neuro-no isolated weakness, no paresthesia, no weakness Psych-no depression, no anxiety Physical Exam Physical Exam: General-alert and oriented x3, no fevers, no chills HEENT-head atraumatic and normocephalic, pupils equal and reactive to light, extraocular muscles intact Neck-no lymphadenopathy or thyromegaly, trachea midline Chest-clear to auscultation percussion. No rales wheezing or rhonchi Cardiac-regular rate and rhythm, normal S1 and S2 Abdomen-normal bowel sounds, nontender, no hepatosplenomegaly Extremities-left hip surgical site is unremarkable. Limited range of motion postoperatively Neuro-cranial nerves II through XII intact, motor and sensory function within normal limits, strength symmetrical , no focal deficits Psych-normal affect, normal mood Results & Data Results & Data Vital Signs (Past 12 Hours) Vital Signs Temp Pulse Resp BP Pulse Ox O2 Del Method O2 Flow Rate 01/24/23 11:17 36.4 C L 83 16 107/59 L 98 Nasal Cannula 4 01/24/23 07:55 Nasal Cannula 2 01/24/23 07:06 36.7 C 87 16 143/76 H 96 Nasal Cannula 8 01/24/23 03:29 36.4 C L 82 18 155/69 H 97 Nasal Cannula 5 Laboratory Results 01/24/23 08:05 01/24/23 08:05 PG Care Time/CCT Total # of Minutes Spent Total Time Spent with Patient: Total time spent is greater than 50% in coordination of care (as documented) at patient's floor/unit and/or counseling patient: Coding Level of Care Code 73077 SUB INP/OBS CARE 3/50MIN Diagnoses Closed fracture of left hip S72.002A History of kidney stones Z87.442 Bronchiectasis J47.9 Mitral valve prolapse I34.1 Acute respiratory failure with hypoxia J96.01
[2023-01-24] MEDS: ALBUT/IPRATROP 3MG/0.5MG NEB 3 ML VIAL NEB SCH ×3 (15:57→22:11)
[2023-01-24] MEDS: ENOXAPARIN INJ 40 MG/0.4 ML SYR SQ SCH (19:52)
[2023-01-24] MEDS: DOCUSATE SODIUM/SENNA 50/8.6MG TAB PO SCH (19:55)
[2023-01-25] MEDS: ALBUT/IPRATROP 3MG/0.5MG NEB 3 ML VIAL NEB SCH ×3 (03:15→12:18)
[2023-01-25 06:53] LABS: Basophils # (auto) 0.05 K/uL (0-0.2); Basophils % (auto) 0.4 %; Eosinophils # (auto) 0.19 K/uL (0-0.50); Eosinophils % (auto) 1.5 %; Hematocrit (blood only) 31.5 % (37.0-47.0); Hemoglobin 10.6 g/dl (12.0-16.0); Immature Granulocytes # (auto) 0.08 K/uL (0.01-0.20); Immature Granulocytes % (auto) 0.6 %; Lymphocytes # (auto) 0.66 K/uL (1.2-3.4); Lymphocytes % (auto) 5.3 %; Mean Corpuscular Hemoglobin 29.3 pg (25.0-34.0); Mean Corpuscular Hgb Conc 33.7 g/dL (32.0-36.0); Mean Platelet Volume 8.9 fL (9.4-12.4); Monocytes # (auto) 0.68 K/uL (0.11-0.59); Monocytes % (auto) 5.5 %; Neutrophils # (auto) 10.73 K/uL (1.40-6.50); Neutrophils % (auto) 86.7 %; Platelet Count 234 K/uL (130-400); RDW Coefficient of Variation 13.8 % (11.5-14.5); RDW Standard Deviation 44.2 fL (36.4-46.3); Red Blood Count 3.62 M/uL (4.20-5.40); White Blood Count 12.39 K/ul (4.8-10.8)
[2023-01-25] MEDS: POLYETHYLENE (MIRALAX) 17 GM PACK PO SCH ×2 (07:26→12:09)
[2023-01-25 07:58] LABS: Calcium 8.5 mg/dl (8.6-10.3); Potassium 3.5 mmol/L (3.5-5.1)
[2023-01-25 08:03] LABS: BUN Creatinine Ratio 22.7 (10-20); Creatinine Clr Calc Pharmacy 50.7 ml/min; Est GFR (Non-African American) 82.8 ml/min
[2023-01-25] MEDS: CHOLECALCIFEROL 1,000 UNITS 25 MCG TAB PO SCH (09:02)
[2023-01-25] MEDS: ACETAMINOPHEN 500 MG TAB PO SCH (09:02)
[2023-01-25] MEDS: ASPIRIN 81 MG ECTAB PO SCH (09:02)
[2023-01-25] MEDS: hydroCHLOROthiazide 25 MG TAB PO SCH (09:02)
[2023-01-25] MEDS: POTASSIUM CHLORIDE CRTAB 20 MEQ TABCR PO SCH (09:02)
[2023-01-25] MEDS: ENOXAPARIN INJ 40 MG/0.4 ML SYR SQ SCH (09:03)
--- NOTE | 2023-01-25 10:36 | Discharge Summary ---
Date of Service January 25, 2023 Admission HPI Per Admitting Provider Veronica Gill is an 82 year old female who lives in independent living at [facility] who presents to the ER with left hip pain. This occurred after she fell from standing on to her left leg doing an exercise class. She reports left leg pain since and unable to fully weight bear. No dizziness, shortness of breath or chest pain prior to falling. She did not hit her head or lose consciousness. XR in the ER showed an acute nondisplaced intertrochanteric fracture of the left femur. She was referred to medicine for admission and ongoing management of this. Current hip pain 4/10, worse with any movement. Principal Diagnosis Mechanical fall with left hip fracture, hypokalemia, transient hypoxia, acute blood loss anemia Discharge Exam General-alert and oriented x3, no fevers, no chills HEENT-head atraumatic and normocephalic, pupils equal and reactive to light, extraocular muscles intact Neck-no lymphadenopathy or thyromegaly, trachea midline Chest-clear to auscultation percussion. No rales wheezing or rhonchi Cardiac-regular rate and rhythm, normal S1 and S2 Abdomen-normal bowel sounds, nontender, no hepatosplenomegaly Extremities-left hip surgical site is unremarkable. Limited range of motion postoperatively Neuro-cranial nerves II through XII intact, motor and sensory function within normal limits, strength symmetrical , no focal deficits Psych-normal affect, normal mood Discharge Data Allergies Allergy/AdvReac Type Severity Reaction Status Date / Time codeine AdvReac Mild Verified 01/06/23 12:04 Consultations 01/22/23 17:56 ED Decision to Admit Stat 01/22/23 19:22 Consult Orthopedic Surgery Routine Procedures Performed Operation Date: 01/23/23 09:35 Actual Procedures p Left Hip Troch Nail(Left) - Edward Up MD Ordered Studies 01/23/23 FL hip LT 2-3V Routine Hospital Course (1) Closed fracture of left hip: Doing well after open reduction internal fixation. Appreciate orthopedic consultation. Surgery completed January 23. Postoperative day #2. Pain control measures. (2) History of kidney stones: Stable. Treated with HCTZ (3) Bronchiectasis: Diagnosed with idiopathic bronchiectasis per pulmonology outpatient note. Uses flutter valve. No acute changes per patient. Actually doing better since moving to [place]. (4) Mitral valve prolapse: Mild prolapse of posterior mitral leaflet. Asymptomatic. No intervention needed at this time (5) Acute respiratory failure with hypoxia: Due to bronchiectasis and probable pulmonary atelectasis postoperatively. Nebulizer treatments and incentive spirometry ordered. Resolved (6) Acute blood loss anemia: Mild. Hemoglobin has drifted down to 10.6. She will take iron supplements for 1 month. No transfusion necessary (7) Hypokalemia: Corrected. She states that she has been taking her iron medication at home as directed. Plan VTE Prophylaxis -Lovenox subcu Disposition - she currently resides at [facility]. She will return to [facility] today, January 25, and continue with outpatient physical therapy. Total Time Total Time Spent Total Time Spent (In Minutes): 40 minutes Discharge Plan Discharge Items Patient Disposition: Home - Self-Care Reason For Visit: LEFT HIP FRACTURE Discharge Diagnosis: Mechanical fall with left hip fracture, hypokalemia, acute blood loss anemia, transient hypoxia Activity: Resume your previous activity Non-emergency contact: Primary Care Provider Call non-emergency contact if: you have any medication questions and your symptoms worsen Follow-up/Referrals: Edward Up MD [Surgeon] - Marina Loredo [Primary Care Provider] - Diet: Regular and Heart Healthy Addtl Attending Provider Instructions: Orthopaedic Instructions after Hip Fracture Surgery: Please keep your wound clean and dry. Do not remove any of the radha. [place] were removed at your follow-up appointment with orthopedic surgery. Please continue daily dressing changes until your follow-up appointment. If there is no drainage onto the dressing for total of 24 hours, you may shower after 5 days from surgery. Allow soap and water to run over the incision, no scrubbing, and pat dry. Do not submerse (sitting in bathtub, hot tub, jacuzzi, pool, etc) the wound for at least 3 weeks. You may bear weight on your lower extremities as tolerated. Please use the walker or as instructed by physical therapy. For pain control please use Tylenol as needed. You may also have a stronger pain medication prescribed to you at discharge. You can also apply ice to the surgical site. To reduce the risk of dangerous blood clots please continue aspirin therapy daily or the medication for blood clots recommended by your medical team. Orthopedic clinic follow-up should be in 6 weeks after surgery for repeat x-ray. [place] can be removed at orthopedic follow-up in 2 to 3 weeks. If necessary, radha can be removed by a nurse at home or at a nursing facility upon our order. Please contact the clinic. Pending Studies at Discharge: No Stand-Alone Forms: My [facility], Smoking Cessation Medications and DC Order Prescriptions: New ferrous sulfate 325 mg (65 mg iron) Tablet,Delayed Release (Dr/Ec) 325 mg PO BIDM Qty: 60 0RF oxycodone 5 mg Tablet 5 mg PO Q4H PRN (Reason: pain) Qty: 20 0RF aspirin 81 mg Tablet,Delayed Release (Dr/Ec) 81 mg PO BID Qty: 0 0RF Continued cholecalciferol (vitamin D3) 25 mcg (1,000 unit) capsule 1,000 unit PO QAM albuterol sulfate 90 mcg/actuation HFA aerosol inhaler 2 inh inhalation QID PRN (Reason: shortness of breath or wheezing) Qty: 8.5 3RF (DME) Flutter Valve Device See Rx Instructions .ROUTE .MEDSUPPLY Qty: 1 0RF Rx Instructions: As directed hydrochlorothiazide 25 mg tablet 25 mg PO BID Qty: 180 3RF lysine [L-Lysine] 500 mg tablet 1,000 mg PO AMHS zinc gluconate-zinc picolinate 30 mg capsule 30 mg PO QAM potassium chloride 20 mEq tablet extended release 20 meq PO BID Qty: 60 11RF cyanocobalamin (vitamin B-12) [Vitamin B-12] 1,000 mcg Tablet 1,000 mcg PO 3XWK turmeric-turmeric root extract 450-50 mg Capsule 1 cap PO QAM glutathione 500 mg Capsule 500 mg PO HS Discharge Orders: Discharge Order (Routine); Ordered 01/25/23 Ordered By: Ap Porter Admission Data Admit Date/Time: 01/22/23 18:15 Attending Provider: Ap Porter Admit Provider: George Barroso Primary Care Provider: Marina Loredo Other Providers: George Barroso ; Parker Swenson Coding Level of Care Code 64322 INP/OBS DISCH >30 MIN Diagnoses Closed fracture of left hip S72.002A History of kidney stones Z87.442 Bronchiectasis J47.9 Mitral valve prolapse I34.1 Acute respiratory failure with hypoxia J96.01 Acute blood loss anemia D62 Hypokalemia E87.6
[2023-01-25] MEDS ORDERED: FERROUS SULFATE 325 MG TAB PO SCH (17:00)
== END 2023-01-25 13:40 | disposition home or self-care (01) | DRG 480 ==
LOC: ED 15:45 → 3W 18:15 → SUATTDRO 18:15 → 3W 21:54

== ENCOUNTER 2024-12-02 16:27 | Inpatient (IN) ==
[2024-12-02 17:12] LABS: Basophils # (auto) 0.06 K/uL (0.00-0.20); Basophils % (auto) 0.4 %; Eosinophils # (auto) 0.06 K/uL (0.00-0.50); Eosinophils % (auto) 0.4 %; Hematocrit (blood only) 45.5 % (37.0-47.0); Hemoglobin 14.5 g/dl (12.0-16.0); Immature Granulocytes # (auto) 0.07 K/uL (0.01-0.20); Immature Granulocytes % (auto) 0.5 %; Lymphocytes # (auto) 0.86 K/uL (1.20-3.40); Lymphocytes % (auto) 6.2 %; Mean Corpuscular Hemoglobin 28.4 pg (25.0-34.0); Mean Corpuscular Hgb Conc 31.9 g/dL (32.0-36.0); Mean Corpuscular Volume 89.2 fL (80.0-100.0); Mean Platelet Volume 8.6 fL (9.4-12.4); Monocytes % (auto) 5.7 %; Neutrophils % (auto) 86.8 %; Platelet Count 476 K/uL (130-400); RDW Coefficient of Variation 15.2 % (11.5-14.5); RDW Standard Deviation 49.1 fL (36.4-46.3); White Blood Count 13.95 K/ul (4.8-10.8)
--- NOTE | 2024-12-02 17:20 | Emergency Department Note ---
Impression & Plan Pneumonia, Influenza A, Bronchiectasis ED Provider Note NAME: MALVIN SANTIAGO AGE: 84 SEX: F : 1940 ARRIVES VIA: Walk-In INFORMANT: Patient, ED PROVIDER(S): Wilbert Mendoza DO CHIEF COMPLAINT: Difficulty breathing HPI: The patient is an 84-year-old female who presented to the emergency department to request of her primary care physician. The patient describes recently having a viral illness. She has had cough generalized illness generalized weakness and difficulty breathing over the course of the last few weeks. She was diagnosed with a virus. The patient was also on an antibiotic. She has a history of bronchiectasis and she was covered for possible pneumonia. She went to see her doctor today with ongoing symptoms and shortness of breath with exertion. She was sent to our facility for outpatient laboratory and radiographic studies. She was found to have an elevated D-dimer was sent to the emergency department. ROS: See above HPI for pertinent positives & negatives. A total of 10 systems reviewed and were otherwise negative. PAST MEDICAL HISTORY: See Below PAST SURGICAL HISTORY: See Below FAMILY HISTORY: See Below SOCIAL HISTORY: See Below HOME MEDICATIONS: See Below ALLERGIES: See Below VITALS: See Below PHYSICAL EXAMINATION: GENERAL: Patient is awake alert in no acute distress patient is resting comfortably and showing no signs of anxiety EYES: The conjunctivae are clear. The pupils are round and reactive. EARS, NOSE, MOUTH AND THROAT: The nose is without any evidence of any deformity. NECK: The neck is nontender and supple. RESPIRATORY: Diminished breath sounds are noted throughout. Scattered rhonchi were also appreciated. Mild pursed lip breathing was noted. CARDIOVASCULAR: Regular rate and rhythm noted there no murmurs rubs or gallops normal S1 normal S2. GASTROINTESTINAL: The abdomen is soft. Abdomen is nontender. MUSCULOSKELETAL/EXTREMITIES: There is no evidence of gross deformity full range of motion is noted in the hips and shoulders. SKIN: There is no obvious evidence of any rash. There are no petechiae, pallor or cyanosis noted. NEUROLOGIC: Patient is awake alert and oriented x3 MEDICAL DECISION MAKING: The patient is an 84-year-old female who presented to the emergency department for an evaluation of difficulty breathing and cough. The patient's had URI symptoms over the course the last several days. She was treated with an antibiotic as an outpatient. She has a history of bronchiectasis and was felt to be high risk for pneumonia. The patient was found have a positive influenza swab. She also had an elevated D-dimer and her family doctor sent her to the emergency department for further evaluation. CT of the chest was obtained. This does not appear to be consistent with venous thromboembolic disease but rather pneumonia. Given the patient's comorbidities she was felt to be a better candidate for inpatient management. I discussed her condition with her primary pulmonary doctor as well as the on-call [facility] hospitalist. They have agreed to evaluate the patient in the emergency department for further management and disposition. Triage Nursing notes reviewed. Prior medical records reviewed Vital Signs: reviewed and remarkable for no significant abnormalities Differential diagnosis: Reactive airway disease, pneumonia, pneumothorax, COPD, CHF, infections, cardiac ischemia, pulmonary embolism, musculoskeletal, gastrointestinal, as well as other pathologies. ER treatment provided: See below Diagnostics interpreted by me: ECG: EKG was obtained in the emergency department. My interpretation is sinus tachycardia at 101 bpm. There is no ectopy. Incomplete right bundle branch block pattern was noted. This was compared to a tracing from January 22, 2023. No changes were noted. Cardiac Monitoring: An order was placed for continuous cardiac monitoring. The monitor shows a rate of 70 bpm with sinus rhythm. Laboratory studies: As stated above and show below. Imaging studies: See below. Radiographic imaging was reviewed by myself Consultation(s): I discussed this case with Dr. Stubbs who is the patient's primary pulmonary physician. Dr. Sykes who is on-call for the [facility] Hospitalist group was notified about the patient. Past Med/Surg History Problem List (Updated 12/02/24 @ 22:20 by Wilbert Mendoza DO) Bronchiectasis (Acute) Influenza A (Acute) Pneumonia (Acute) Bronchiectasis Influenza A Bronchitis Pneumonia History of hip surgery 01/23/2023 [place]: Left hip short trochanteric fixation nail Hypokalemia Acute blood loss anemia Acute respiratory failure with hypoxia Closed intertrochanteric fracture of left femur Hydronephrosis, right Vitamin D deficiency Nocturia Renal cyst, right Bilateral nephrolithiasis Urinary symptom or sign Medical History History of kidney stones Bronchiectasis Mitral valve prolapse Surgical History History of lithotripsy Family History Mother Hypertension Melanoma Cancer on nose Sister Tumor anal H/O kidney removal Grandmother (Maternal) Ovarian cancer Denies family history of Prostate cancer Breast cancer Colorectal cancer Social History Smoking Status: Former smoker Tobacco Type: Cigarettes Second Hand Exposure: No; Do You Dip or Chew Tobacco: No; Hx Alcohol Use: No Hx Substance Use: No Preferred Language: Monegasque Communication Ability: Effective Greenhouse Instructor Required: No Beliefs That Will Affect Care: None marital status: Current Living Situation: Spouse current occupational status: retired Feels Safe at Home: Yes Assistive Devices: None Allergies Allergies Allergy/AdvReac Type Severity Reaction Status Date / Time codeine AdvReac Mild Verified 12/29/23 11:02 Home Meds Home Medications Medication Instructions Recorded Confirmed lysine 500 mg tablet (L-Lysine) 1,000 mg PO AMHS 05/29/22 12/29/23 zinc gluconate,zinc picolinate 30 30 mg PO QAM 05/29/22 12/29/23 mg capsule cyanocobalamin (vitamin B-12) 1,000 mcg PO 3XWK 01/22/23 12/29/23 1,000 mcg tablet (Vitamin B-12) glutathione 500 mg capsule 500 mg PO HS 01/22/23 12/29/23 turmeric 450 mg-turmeric root 1 cap PO QAM 01/22/23 12/29/23 extract 50 mg capsule cholecalciferol (vitamin D3) 25 1,000 unit PO BID 02/19/23 12/29/23 mcg (1,000 unit) capsule alendronate 70 mg tablet (Fosamax) mg PO .weekly 06/03/23 12/29/23 ferrous sulfate 325 mg (65 mg 325 mg PO .COMPLEX 06/03/23 12/29/23 iron) tablet,delayed release quercetin 500 mg capsule 800 mg PO BID 06/03/23 12/29/23 Previous Rx's Medication Instructions Recorded Flutter Valve #1 ea 08/09/22 hydrochlorothiazide 25 mg tablet 25 mg PO DAILY #90 tabs 12/29/23 albuterol sulfate 90 mcg/actuation 2 inh inhalation QID PRN shortness 03/03/24 aerosol inhaler of breath or wheezing #8.5 grams potassium chloride 20 mEq 20 meq PO BID #180 tabs 10/13/24 tablet,extended release Results & Data (ED) Vital Signs Vital Signs - 24 hr 12/02/24 16:33 12/02/24 16:57 12/02/24 17:01 Temperature 36.3 C L Temperature Source Temporal Artery Scan Pulse Rate 113 H 93 H Pulse Rate [Apical] Pulse Rhythm [Apical] Pulse Strength [Apical] Respiratory Rate 24 Respiratory Effort / Characteristics Respiratory Depth Respiratory Pattern Blood Pressure 205/102 H Blood Pressure [Right Arm] Blood Pressure Mean 136 Blood Pressure Mean [Right Arm] Blood Pressure Position [Right Arm] Pulse Oximetry 90 91 Oxygen Delivery Method Room Air Room Air Sepsis Recent Fever Within 48 Hours No Sepsis New/Unexplained Change in Mental Status No Sepsis Action Taken by Nursing No Action Required 12/02/24 17:50 12/02/24 18:27 12/02/24 20:50 Temperature Temperature Source Pulse Rate Pulse Rate [Apical] 89 89 Pulse Rhythm [Apical] Pulse Strength [Apical] Normal Normal Respiratory Rate 17 16 Respiratory Effort / Characteristics Non-Labored Spontaneous Non-Labored Spontaneous Respiratory Depth Normal Normal Respiratory Pattern Regular Regular Blood Pressure Blood Pressure [Right Arm] 154/92 H Blood Pressure Mean Blood Pressure Mean [Right Arm] 112 Blood Pressure Position [Right Arm] Lying Pulse Oximetry 93 91 Oxygen Delivery Method Room Air Room Air Sepsis Recent Fever Within 48 Hours Sepsis New/Unexplained Change in Mental Status Sepsis Action Taken by Nursing 12/02/24 20:58 12/02/24 22:00 Temperature Temperature Source Pulse Rate 83 Pulse Rate [Apical] 77 Pulse Rhythm [Apical] Regular Pulse Strength [Apical] Normal Respiratory Rate 13 Respiratory Effort / Characteristics Non-Labored Spontaneous Respiratory Depth Normal Respiratory Pattern Regular Blood Pressure Blood Pressure [Right Arm] 137/76 Blood Pressure Mean Blood Pressure Mean [Right Arm] 96 Blood Pressure Position [Right Arm] Lying Pulse Oximetry 94 Oxygen Delivery Method Room Air Sepsis Recent Fever Within 48 Hours Sepsis New/Unexplained Change in Mental Status Sepsis Action Taken by Retirement Medications Current Medication List: was personally reviewed by me Laboratory Data Attestation: I reviewed the patient's lab results. 12/02/24 16:48 12/02/24 16:48 Lab Results 03/13/25 03/13/25 Range/Units 16:48 19:39 WBC 13.95 H (4.8-10.8) K/ul RBC 5.10 (4.20-5.40) M/uL Hgb 14.5 (12.0-16.0) g/dl Hct 45.5 (37.0-47.0) % MCV 89.2 (80.0-100.0) fL MCH 28.4 (25.0-34.0) pg MCHC 31.9 L (32.0-36.0) g/dL RDW Std Deviation 49.1 H (36.4-46.3) fL RDW Coeff of Cynthia 15.2 H (11.5-14.5) % Plt Count 476 H (130-400) K/uL MPV 8.6 L (9.4-12.4) fL Immature Gran % (Auto) 0.5 % Neut % (Auto) 86.8 % Lymph % (Auto) 6.2 % Rush % (Auto) 5.7 % Eos % (Auto) 0.4 % Baso % (Auto) 0.4 % Neut # (Auto) 12.10 H (1.40-6.50) K/uL Lymph # (Auto) 0.86 L (1.20-3.40) K/uL Rush # (Auto) 0.80 H (0.11-0.59) K/uL Eos # (Auto) 0.06 (0.00-0.50) K/uL Baso # (Auto) 0.06 (0.00-0.20) K/uL Immature Gran # (Auto) 0.07 (0.01-0.20) K/uL PT 11.6 (9.0-12.0) Seconds INR 1.1 (0.9-1.1) APTT 27 (21-31) Seconds PTT Ratio 1.0 Sodium 138 (136-145) mmol/L Potassium 3.5 D (3.5-5.1) mmol/L Chloride 96 L (98-107) mmol/L Carbon Dioxide 36 H (21-32) mmol/L Anion Gap 6 (3-11) BUN 19 (6-23) mg/dl Creatinine 0.64 (0.6-1.2) mg/dl Est Cr Clr Drug Dosing 42.6 ml/min eGFR 87.63 BUN/Creatinine Ratio 29.7 H (10-20) Glucose 115 H (70-99(Fasting)) mg/dl Calcium 10.0 (8.6-10.3) mg/dl Magnesium 2.0 (1.7-2.4) mg/dl Total Bilirubin 0.6 (0.2-1.0) mg/dl AST 16 (13-39) U/L ALT 13 (7-52) U/L Alkaline Phosphatase 111 H (34-104) U/L Troponin I High Sens 7.4 (0-14) pg/ml Total Protein 7.6 (6.0-8.3) gm/dl Albumin 4.0 (3.4-5.0) gm/dl Globulin 3.6 (2.5-4.0) gm/dl Albumin/Globulin Ratio 1.1 (0.9-2) Procalcitonin 0.03 (0-0.5) ng/ml SARS-CoV-2 (PCR) NEGATIVE (Negative) Influenza Type A (PCR) Positive A (Neg) Influenza Type B (PCR) Negative (Neg) RSV (RT-PCR) Negative (Neg) Administered Medications Discontinued Medications Albuterol (Albut/Ipratrop 3mg/0.5mg Neb 3 Ml Vial) 3 ml NEB NOW STA; Protocol Stop: 12/02/24 17:15 Last Admin: 12/02/24 17:23 Dose: 3 ml Documented By: FACUNDO Cefepime HCl (Maxipime 2000mg) 2,000 mg in 20 mls @ 5 mls/min IV NOW STA; Protocol Stop: 12/02/24 19:30 Last Admin: 12/02/24 20:44 Dose: 5 mls/min Documented By: FACUNDO Doxycycline Hyclate 100 mg/ (Dextrose) 100 mls @ 50 mls/hr IV NOW STA Stop: 12/02/24 21:26 Last Admin: 12/02/24 20:49 Dose: 50 mls/hr Documented By: FACUNDO Ioversol (Optiray 320 125ml) 115 ml IV ONCE ONE Stop: 12/02/24 18:13 Last Admin: 12/02/24 18:12 Dose: 115 ml Documented By: AD Imaging Data Attestation: I personally reviewed and interpreted this imaging study as follows: My Impression: CT T of the chest was obtained in the department. My interpretation is no free air, infiltrate was noted mostly on the left, bilateral infiltrate noted, final report below. Radiologist's Impression: Chest CTA 12/02/24 17:08 EXAM: CT Angiography Chest With Intravenous Contrast INDICATION: Sent to the ER after abnormal chest x-ray. TECHNIQUE: Axial computed tomographic angiography images of the chest with intravenous contrast. Sagittal and coronal reformatted images were created and reviewed. This CT exam was performed using one or more of the following dose reduction techniques: automated exposure control, adjustment of the mA and/or kV according to patient size, and/or use of iterative reconstruction technique. MIP reconstructed images were created and reviewed. CONTRAST: 115ml of Optiray 320 was administered intravenously. COMPARISON: 07/22/2024 FINDINGS: Pulmonary arteries: No abnormality noted. No pulmonary embolism. Aorta: Stable ectasia of the ascending aorta and scattered plaque in the arch and descending segment without dissection or aneurysm. Lungs and pleural spaces: Bilateral anterior apical fibrotic scarring and bronchiectasis stable. There is stable bronchiectasis with new extensive mucoid plugging in the lower lobes and inferior aspect of the right middle lobe and lingula. There is a new peripheral partially pleural-based spiculated infiltrate in the left lower lobe measuring 1.6 x 1.8 x 1.6 cm with mild surrounding groundglass density. There is a pleural-based infiltrate in the left upper lobe at the fissural attachment laterally measuring 1.0 x 1.2 x 1.7 cm. There is a posterior left upper lobe fissural based nodular infiltrate measuring 0.9 x 1.2 x 1.2 cm. There is peribronchial infiltrate in the medial right lower lobe with multiple bronchiectatic airways extending posterior to the right mainstem bronchus and right hilum. Mild dependent consolidation and trace pleural effusions noted bilaterally in the bases. Heart: Cardiomegaly stable. No pericardial effusion. There is left ventricular hypertrophy. No definite right heart strain. Bones/joints: Degenerative changes noted throughout the spine. No acute osseous abnormality seen. Soft tissues: No abnormality noted. Lymph nodes: No abnormality noted. No enlarged lymph nodes. IMPRESSION: 1. No pulmonary embolus noted. 2. Severe bronchiectasis present with significant mucus plugging and multiple foci of irregular parenchymal infiltrate particularly in the left upper and lower lobes. Findings most consistent with infectious bronchitis and pneumonia. Follow-up needed to exclude the presence of a developing neoplasm. ACT 112: N/A Electronically signed by Maureen Maier 12-02-2024 6:38 PM Discharge Plan Visit Data Chief Complaint: Referred by Doctor Stated Complaint: REF BY DOCTOR AFTER CHEST XRAY ED Provider: Wilbert Mendoza Discharge Problem: Pneumonia, Influenza A, Bronchiectasis Patient Disposition: Being Evaluated by Hospitalist Forms Stand Alone Forms: My [facility] Prescriptions Prescriptions: No Action cholecalciferol (vitamin D3) 25 mcg (1,000 unit) capsule 1,000 unit PO BID potassium chloride 20 mEq tablet extended release 20 meq PO BID Qty: 180 3RF (DME) Flutter Valve Device See Rx Instructions .ROUTE .MEDSUPPLY Qty: 1 0RF Rx Instructions: As directed albuterol sulfate 90 mcg/actuation HFA aerosol inhaler 2 inh inhalation QID PRN (Reason: shortness of breath or wheezing) Qty: 8.5 3RF lysine [L-Lysine] 500 mg tablet 1,000 mg PO AMHS zinc gluconate,zinc picolinate 30 mg capsule 30 mg PO QAM quercetin 500 mg capsule 800 mg PO BID alendronate [Fosamax] 70 mg tablet PO .weekly ferrous sulfate 325 mg (65 mg iron) tablet,delayed release (DR/EC) 325 mg PO .COMPLEX Rx Instructions: 325 mg orally 3 times weekly; hydrochlorothiazide 25 mg tablet 25 mg PO DAILY Qty: 90 3RF cyanocobalamin (vitamin B-12) [Vitamin B-12] 1,000 mcg Tablet 1,000 mcg PO 3XWK turmeric-turmeric root extract 450-50 mg Capsule 1 cap PO QAM glutathione 500 mg Capsule 500 mg PO HS Referrals Referrals: Jose Ruano MD [Primary Care Provider] -
[2024-12-02] MEDS: ALBUT/IPRATROP 3MG/0.5MG NEB 3 ML VIAL NEB STA (17:23)
[2024-12-02 17:31] LABS: Albumin Globulin Ratio 1.1 (0.9-2); BUN Creatinine Ratio 29.7 (10-20); Bilirubin,Total 0.6 mg/dl (0.2-1.0); Creatinine Clr Calc Pharmacy 42.6 ml/min; Globulin 3.6 gm/dl (2.5-4.0); Potassium 3.5 mmol/L (3.5-5.1); Total Protein 7.6 gm/dl (6.0-8.3)
[2024-12-02 17:38] LABS: Troponin I High Sensitivity 7.4 pg/ml (0-14)
[2024-12-02 17:43] LABS: INR 1.1 (0.9-1.1); Partial Thromboplastin Time 27 Seconds (21-31); Prothrombin Time 11.6 Seconds (9.0-12.0)
[2024-12-02 17:47] LABS: Influenza A virus by PCR Positive (Neg); Influenza B virus by PCR Negative (Neg); RSV by PCR Negative (Neg); SARS CoV2 RNA(COVID-19) Ceph NEGATIVE (Negative)
[2024-12-02] MEDS: OPTIRAY 320 125ml IV ONE (18:12)
--- NOTE | 2024-12-02 18:40 | CT Scan Report ---
EXAM: CT Angiography Chest With Intravenous Contrast INDICATION: Sent to the ER after abnormal chest x-ray. TECHNIQUE: Axial computed tomographic angiography images of the chest with intravenous contrast. Sagittal and coronal reformatted images were created and reviewed. This CT exam was performed using one or more of the following dose reduction techniques: automated exposure control, adjustment of the mA and/or kV according to patient size, and/or use of iterative reconstruction technique. MIP reconstructed images were created and reviewed. CONTRAST: 115ml of Optiray 320 was administered intravenously. COMPARISON: 07/22/2024 FINDINGS: Pulmonary arteries: No abnormality noted. No pulmonary embolism. Aorta: Stable ectasia of the ascending aorta and scattered plaque in the arch and descending segment without dissection or aneurysm. Lungs and pleural spaces: Bilateral anterior apical fibrotic scarring and bronchiectasis stable. There is stable bronchiectasis with new extensive mucoid plugging in the lower lobes and inferior aspect of the right middle lobe and lingula. There is a new peripheral partially pleural-based spiculated infiltrate in the left lower lobe measuring 1.6 x 1.8 x 1.6 cm with mild surrounding groundglass density. There is a pleural-based infiltrate in the left upper lobe at the fissural attachment laterally measuring 1.0 x 1.2 x 1.7 cm. There is a posterior left upper lobe fissural based nodular infiltrate measuring 0.9 x 1.2 x 1.2 cm. There is peribronchial infiltrate in the medial right lower lobe with multiple bronchiectatic airways extending posterior to the right mainstem bronchus and right hilum. Mild dependent consolidation and trace pleural effusions noted bilaterally in the bases. Heart: Cardiomegaly stable. No pericardial effusion. There is left ventricular hypertrophy. No definite right heart strain. Bones/joints: Degenerative changes noted throughout the spine. No acute osseous abnormality seen. Soft tissues: No abnormality noted. Lymph nodes: No abnormality noted. No enlarged lymph nodes. IMPRESSION: 1. No pulmonary embolus noted. 2. Severe bronchiectasis present with significant mucus plugging and multiple foci of irregular parenchymal infiltrate particularly in the left upper and lower lobes. Findings most consistent with infectious bronchitis and pneumonia. Follow-up needed to exclude the presence of a developing neoplasm. ACT 112: N/A Electronically signed by Maureen Maier 12-02-2024 6:38 PM
--- NOTE | 2024-12-02 20:24 | History & Physical Report ---
Date of Service December 02, 2024 Assessment & Plan (1) Pneumonia: (2) Bronchitis: (3) Influenza A: (4) Bronchiectasis: (5) Hypokalemia: Plan Patient is an 84-year-old female with past medical history of bronchiectasis, mitral valve prolapse, melanoma, chronic nephrolithiasis on HCTZ. She presented to the ER after being referred by her PCP for an elevated D-dimer. Patient has had cough, weakness, and dyspnea on exertion for approximately 5 weeks, she dated stated 5 weeks ago she tested positive for the flu at [facility], she did not receive Tamiflu treatment as well as outside of the 3-day window. Chest CTA was negative for PE however showed severe bronchiectasis, left upper lobe and left lower lobe infiltrate, bronchitis. She is being admitted for IV antibiotics and scheduled DuoNeb treatments. #PNA/influenza A/bronchitis Hx of bronchiectasis - follows with Dr. Stubbs CTA showing severe bronchiectasis, multiple foci of irregular parenchymal infiltrate particularly in left upper and left lower lobes - infectious bronchitis and pneumonia - noted that follow-up will be needed to exclude presence of developing neoplasm positive for Influenza A in ED, patient reports tested positive approximately 5 weeks ago leukocytosis, WBC 13.95 - nonseptic, VSS - trend CBC Pro-Chandana negative, 0.03 CRP pending continue cefepime and doxycycline MRSA swab ordered defer Tamiflu - Up-to-date recommends treatment and hospitalized patients if symptomatic for up to 10 days, patient stated she tested positive for influenza approximately 5 weeks ago, outside of 10-day window. isolation precautions blood cultures pending incentive spirometry + flutter valve scheduled and prn duonebs Promote oral hydration - hold HCTZ with acute infection oxygen prn #hypokalemia K+ 3.5, mag stable Holding HCTZ as above 40 mEq p.o. ordered on admission Trend BMP elevated D-dimer - 720, chest CTA negative for PE, suspect elevated 2/2 demand with above Chronic stable diagnoses: thrombocytosis - plt 476 on admission chronic bilateral nephrolithiasis - follows with Dr. Roman - holding HCTZ as above MVP - follows with Dr. Chavarria VTE ppx: SCDs Diet: regular Dispo: Med/tele Dispo planning - lives at [facility] [place], PT/OT ordered with generalized weakness Admission and Anticipated Discharge Date Admission Date: 12/02/24 History of Present Illness Chief Complaint: referred by doc Primary Care Provider: Jose Ruano MD Patient is an 84-year-old female with past medical history of bronchiectasis, mitral valve prolapse, melanoma, chronic nephrolithiasis on HCTZ. She presented to the ER after being referred by her PCP for an elevated D-dimer. Patient has had cough, weakness, and dyspnea on exertion for approximately 5 weeks, she dated stated 5 weeks ago she tested positive for the flu at [facility], she did not receive Tamiflu treatment as well as outside of the 3-day window. Chest CTA was negative for PE however showed severe bronchiectasis, left upper lobe and left lower lobe infiltrate, bronchitis. She is being admitted for IV antibiotics and scheduled DuoNeb treatments. Patient seen at bedside with her present. She stated that the symptoms have been ongoing for 5 weeks after she tested positive for the flu. She did not think much of it as she has chronic cough and chronic dyspnea on exertion, however acutely worsened. She also endorses weakness. She denies any sick contacts however lives at [facility] and could have been around people that were sick. She endorses dizziness and lightheadedness for the past few days, her has been walking with her just to be safe. She does endorse chills, however unchanged. She stated she did receive an antibiotic that ended with -cillin recently for UTI. Records show Augmentin. She denies any urinary symptoms, UA ordered on admission. Patient denies fever, chest pain, abdominal pain, nausea, vomiting, diarrhea. She took her morning medications but is due for her evening medications. She wishes to be DNR/DNI. Allergies Allergy/AdvReac Type Severity Reaction Status Date / Time codeine AdvReac Mild Verified 12/29/23 11:02 Home Medications Medication Instructions Recorded Confirmed Type lysine 500 mg tablet (L-Lysine) 1,000 mg PO AMHS 05/29/22 12/02/24 History zinc gluconate,zinc picolinate 30 30 mg PO QAM 05/29/22 12/02/24 History mg capsule Flutter Valve #1 ea 08/09/22 12/29/23 Rx cyanocobalamin (vitamin B-12) 1,000 mcg PO 3XWK 01/22/23 12/02/24 History 1,000 mcg tablet (Vitamin B-12) glutathione 500 mg capsule 500 mg PO HS 01/22/23 12/02/24 History turmeric 450 mg-turmeric root 1 cap PO QAM 01/22/23 12/02/24 History extract 50 mg capsule cholecalciferol (vitamin D3) 25 1,000 unit PO BID 02/19/23 12/02/24 History mcg (1,000 unit) capsule alendronate 70 mg tablet (Fosamax) 70 mg PO .weekly 06/03/23 12/03/24 History ferrous sulfate 325 mg (65 mg 325 mg PO .COMPLEX 06/03/23 12/02/24 History iron) tablet,delayed release quercetin 500 mg capsule 800 mg PO BID 06/03/23 12/02/24 History hydrochlorothiazide 25 mg tablet 25 mg PO DAILY #90 tabs 12/29/23 12/02/24 Rx albuterol sulfate 90 mcg/actuation 2 inh inhalation QID PRN shortness 03/03/24 12/02/24 Rx aerosol inhaler of breath or wheezing #8.5 grams potassium chloride 20 mEq 20 meq PO BID #180 tabs 10/13/24 12/02/24 Rx tablet,extended release Past Med/Surg History Problem List (Updated 12/02/24 @ 22:20 by Wilbert Mendoza DO) Bronchiectasis (Acute) Influenza A (Acute) Pneumonia (Acute) Bronchiectasis Influenza A Bronchitis Pneumonia History of hip surgery 01/23/2023 [place]: Left hip short trochanteric fixation nail Hypokalemia Acute blood loss anemia Acute respiratory failure with hypoxia Closed intertrochanteric fracture of left femur Hydronephrosis, right Vitamin D deficiency Nocturia Renal cyst, right Bilateral nephrolithiasis Urinary symptom or sign Medical History History of kidney stones Bronchiectasis Mitral valve prolapse Surgical History History of lithotripsy Family History Mother Hypertension Melanoma Cancer on nose Sister Tumor anal H/O kidney removal Grandmother (Maternal) Ovarian cancer Denies family history of Prostate cancer Breast cancer Colorectal cancer Social History Smoking Status: Never smoker Tobacco Type: Cigarettes Second Hand Exposure: No; Do You Dip or Chew Tobacco: No; Hx Alcohol Use: No Hx Substance Use: No Preferred Language: Yoruba Communication Ability: Effective 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 Non-toxic appearing. HEENT- EOMI, mucous membranes dry. Hearing grossly intact. Heart-normal S1 and S2. No murmurs, rubs or gallops. Lungs-decreased bilaterally, no respiratory distress, no accessory muscle use. No wheezing. Abdomen-normal bowel sounds and soft. No ascites noted. Non-tender. Extremities- no clubbing, cyanosis, or edema. Rheumatologic-normal range of motion. Psychiatric-normal affect. Results & Data Results & Data Vital Signs (Past 12 Hours) Vital Signs Temp Pulse Pulse Resp BP BP Pulse Ox 12/02/24 18:27 89 17 154/92 H 91 12/02/24 17:50 93 12/02/24 17:01 93 H 12/02/24 16:57 91 12/02/24 16:33 36.3 C L 113 H 24 205/102 H 90 O2 Del Method 12/02/24 18:27 Room Air 12/02/24 17:50 Room Air 12/02/24 17:01 12/02/24 16:57 Room Air 12/02/24 16:33 Room Air Laboratory Results Reviewed CBC, PT/INR, CMP, Pro-Chandana, troponin, mag, covid/flu/rsv Diagnostic Findings reviewed chest CTA Medications Administered ed - doxy 100 mg IV, duo-neb, cefepime admission - potassium 40 meq PO ECG Additional Comments: ordered Code Status & VTE Plan Code Status dnr/dni VTE Prophylaxis Plan VTE Prophylaxis will be ordered: Yes Supervising Physician Co-Signing Physician Notes Attending addendum: I have physically seen this patient, have supervised the SOFI's activities, and agree with the H&P unless as otherwise noted. Assessment and Plan: The patient is an 84-year-old female with past medical history including bronchiectasis, mitral valve prolapse, melanoma, chronic nephrolithiasis who was referred to the emergency department by her PCP for an elevated D-dimer. The patient has had a cough, generalized weakness, dyspnea on exertion for approximately 5 weeks, at which time she was tested positive for influenza A at [facility]. She did not receive Tamiflu treatment at that time, and is presently outside the 3 in 10-day windows. CTA chest was negative for PE this evening, but did show severe bronchiectasis, left upper lobe and left lower lobe infiltrates and bronchitis. She is referred for evaluation for admission to the [facility] for IV antibiotics for multifocal pneumonia and bronchiectasis. #Multifocal pneumonia, influenza A, bronchitis, bronchiectasis- Admit to monitored bed CT angiography showing severe bronchiectasis, multiple foci of irregular parenchymal infiltrate particularly in left upper and left lower lobes- infectious bronchitis and pneumonia suspected. Noted at follow-up will be needed to exclude presence of developing neoplasm [employer] testing positive for influenza A in ED, but reportedly was +5 weeks ago as well. Placed on cefepime 2 g IV every 12 hours and doxycycline 100 mg IV every 12 hours MRSA swab ordered and pending Incentive spirometry and flutter valve DuoNebs every 2 hours as needed Oxygen titration to keep pulse ox 90-92% Hypokalemia-potassium 3.5 on admission Give Klor-Con 40 mill equivalents p.o., recheck laboratory in the a.m. Hold HCTZ Remaining orders and notations as noted PG Care Time/CCT Total # of Minutes Spent Total Time Spent with Patient: Total time spent is greater than 50% in coordination of care (as documented) at patient's floor/unit and/or counseling patient: Coding Level of Care Code 32778 INT INP/OBS CARE 3/75MIN Diagnoses Pneumonia J18.9 Bronchitis J40 Influenza A J10.1 Bronchiectasis J47.9 Hypokalemia E87.6
[2024-12-02] MEDS: CEFEPIME 2000MG 2,000 MG/20 ML SYR IV STA (20:44)
[2024-12-02] MEDS: DOXYCYCLINE HYCLATE 100 MG in DEXTROSE 5% MINI-B 100 ML IV STA (20:49)
[2024-12-02] MEDS: POTASSIUM CHLORIDE CRTAB 20 MEQ TABCR PO STA (22:31)
[2024-12-02 22:59] LABS: C Reactive Protein 2.79 mg/dl (0-0.5)
[2024-12-02] MEDS ORDERED: ACETAMINOPHEN 325 MG TAB PO PRN (23:43)
[2024-12-02] MEDS ORDERED: MELATONIN 3 MG TAB PO PRN (23:43)
[2024-12-02] MEDS ORDERED: ALBUT/IPRATROP 3MG/0.5MG NEB 3 ML VIAL NEB PRN (23:43)
[2024-12-02] MEDS ORDERED: ALBUTEROL HFA 8 GM INHALER INH PRN (23:43)
[2024-12-02] MEDS ORDERED: ONDANSETRON INJ 2 MG/ML 2 ML VIAL IV PRN (23:43)
[2024-12-02] MEDS ORDERED: BENZONATATE 100 MG CAPSULE PO PRN (23:43)
[2024-12-02] MEDS ORDERED: DOCUSATE SODIUM 100 MG CAP PO PRN (23:43)
[2024-12-03] MEDS: ALBUT/IPRATROP 3MG/0.5MG NEB 3 ML VIAL NEB SCH ×2 (02:01→15:52)
--- NOTE | 2024-12-03 04:53 | Billing Data ---
Date of Service December 03, 2024 Coding Level of Care Code 14523 INT INP/OBS CARE
[2024-12-03 06:17] LABS: Basophils # (auto) 0.05 K/uL (0.00-0.20); Basophils % (auto) 0.4 %; Eosinophils # (auto) 0.13 K/uL (0.00-0.50); Eosinophils % (auto) 1.1 %; Hematocrit (blood only) 39.5 % (37.0-47.0); Immature Granulocytes # (auto) 0.08 K/uL (0.01-0.20); Immature Granulocytes % (auto) 0.7 %; Lymphocytes # (auto) 0.69 K/uL (1.20-3.40); Lymphocytes % (auto) 5.8 %; Mean Corpuscular Hemoglobin 28.9 pg (25.0-34.0); Mean Corpuscular Hgb Conc 32.9 g/dL (32.0-36.0); Mean Corpuscular Volume 87.8 fL (80.0-100.0); Mean Platelet Volume 8.7 fL (9.4-12.4); Monocytes # (auto) 0.79 K/uL (0.11-0.59); Monocytes % (auto) 6.7 %; Neutrophils # (auto) 10.12 K/uL (1.40-6.50); Neutrophils % (auto) 85.3 %; Platelet Count 425 K/uL (130-400); RDW Coefficient of Variation 14.9 % (11.5-14.5); White Blood Count 11.86 K/ul (4.8-10.8)
[2024-12-03 06:31] LABS: BUN Creatinine Ratio 24.5 (10-20); Calcium 8.9 mg/dl (8.6-10.3); Creatinine Clr Calc Pharmacy 57.1 ml/min; Magnesium 1.8 mg/dl (1.7-2.4); Potassium 3.6 mmol/L (3.5-5.1)
[2024-12-03 07:48] LABS: Appearance Urine Cloudy (Clear); Bacteria Urine Automated None Seen (None Seen); Bilirubin Urine Negative (Negative); Blood Urine Negative (Negative); Cast Urine Automated 0-2 /lpf (0-2); Color Urine Yellow; Epithelial Cell Urine Auto 0-2 /hpf (0-2); Glucose Urine UA Negative (Negative); Ketones Urine Negative (Negative); Leukocyte Esterase Urine 2+ (Negative); Nitrite Urine Negative (Negative); Protein Urine Negative (Negative); RBC Urine Automated 0-2 /hpf (0-2); Specific Gravity Urine 1.018 (1.000-1.030); Urobilinogen Urine Negative (Negative); WBC Urine Automated 21-50 /hpf (0-5)
[2024-12-03] MEDS: FERROUS SULFATE 325 MG TAB PO SCH (08:28)
[2024-12-03] MEDS: CEFEPIME 2000MG 2,000 MG/20 ML SYR IV SCH (08:28)
[2024-12-03] MEDS: DOXYCYCLINE HYCLATE 100 MG in DEXTROSE 5% MINI-B 100 ML IV SCH (08:34)
--- NOTE | 2024-12-03 12:48 | Hospitalist Progress Note ---
Date of Service December 03, 2024 Assessment & Plan (1) Pneumonia: (2) Bronchitis: (3) Influenza A: (4) Bronchiectasis: (5) Hypokalemia: Plan Patient is an 84-year-old female with past medical history of bronchiectasis, mitral valve prolapse, melanoma, chronic nephrolithiasis on HCTZ. She presented to the ER after being referred by her PCP for an elevated D-dimer. Patient has had cough, weakness, and dyspnea on exertion for approximately 5 weeks, she dated stated 5 weeks ago she tested positive for the flu at [facility], she did not receive Tamiflu treatment as well as outside of the 3-day window. Chest CTA was negative for PE however showed severe bronchiectasis, left upper lobe and left lower lobe infiltrate, bronchitis. She is being admitted for IV antibiotics and scheduled DuoNeb treatments. Bronchiectasis, pneumonia, history of pseudomonal colonization Follows with pulmonology Flu a positive. She was also flu a positive on 10/29/2024 Current exacerbation may represent superimposed pneumonia and residual flu positive Continue cefepime. Doxycycline converted to azithromycin. Past history of pseudomonal infection while living in [place], we do not have records of this or sensitivities Leukocytosis downtrending, 13.95 on admission CTA with no evidence of PE, severe bronchiectasis, significant mucous plugging and multiple patches of the left upper lobe and lower lobes consistent with infectious bronchitis and pneumonia She was hypoxic to the low 80s on attempted ambulation in the ER. She is low 90s on room air at rest, at time of provider evaluation and walking back from the bathroom she is rapidly fatigued with tachypnea and clear shortness of breath. She is not safe to progress home to oral antibiotics at this time Blood cultures pending Sputum culture ordered, she has not been producing sputum/expectorating CRP 2.79 DuoNebs 4 times daily, and every 2 hours as needed Hypertonic saline twice daily Flutter valve/incentive spirometry continued Oral hydration encouraged Mucinex ordered Hypokalemia Hydrochlorothiazide held 40 mEq given on admission Remains low end of normal Trend BMP, replete as needed Underweight, BMI 15.5 BMI 15.5 Weight 45 kg Dietitian following Phosphorus pending Albumin 4.0 Chronic stable issues: Chronic bilateral nephrolithiasis: Without evidence of obstruction or JESICA on admission. No evidence of UTI Mitral valve prolapse: No acute change in management, follows with cardiology as outpatient VTE: SCDs, dose reduced Lovenox due to age and BMI of 15 Diet: Regular Disposition: M/T Disposition planning: PT/OT pending. Is not yet ready for progression to o utpatient due to borderline hypoxia and respiratory distress with relatively minimal exertion and conversation. 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 Admission and Anticipated Discharge Date Admission Date: December 02, 2024 Sangeeta Francis was seen at the bedside. She reports she is frustrated by having to be admitted to the hospital. She notes that she had COVID this past year, flu a around 5 weeks ago, and now pneumonia and is very frustrated by her recurrent conditions that prevent her from going out and walking. She reports that she would have preferred to go home, but is aware she needed to be admitted on her relay motorman recommendation and also that she was not safe to return home given her severe dyspnea and desaturation below 90% with attempted ambulation. She feels about 60% her normal Has a dry cough but has not been expectorating any mucus Denies fevers chills sweats. No abdominal pain. No chest pain Is short of breath on exertion. No shortness of breath at rest. Primary goal is to get out of the hospital soon as possible and resume walking her daily 2 miles Physical Exam Physical Exam: General: A&Ox3.Cooperative. Thin. Visibly dyspneic following ambulation from the bathroom and on conversation HEENT: Atraumatic, normocephalic. Patient hearing grossly intact Pulm: Globally diminished but without acute wheezes/rales/rhonchi. No increased work of breathing. No respiratory distress. Cardiac: RRR, -mrg. Radial pulses intact and symmetrical. Extremities: Moves all extremities equally. Results & Data Results & Data Vital Signs (Past 12 Hours) Vital Signs Temp Pulse Pulse Resp BP Pulse Ox Pulse Ox 12/03/24 12:18 92 12/03/24 11:35 36.5 C 102 H 18 124/74 92 12/03/24 10:58 98 H 16 95 12/03/24 09:01 36.4 C L 97 H 18 167/97 H 92 12/03/24 08:03 88 16 93 12/03/24 07:30 12/03/24 07:05 75 12/03/24 04:33 84 12/03/24 04:32 36.6 C 88 18 176/76 H 94 12/03/24 04:25 12/03/24 02:03 80 16 94 O2 Del Method 12/03/24 12:18 12/03/24 11:35 Room Air 12/03/24 10:58 Room Air 12/03/24 09:01 Room Air 12/03/24 08:03 Room Air 12/03/24 07:30 Room Air 12/03/24 07:05 12/03/24 04:33 12/03/24 04:32 Room Air 12/03/24 04:25 Room Air 12/03/24 02:03 Room Air PG Care Time/CCT Total # of Minutes Spent Total Time Spent with Patient: Total time spent is greater than 50% in coordination of care (as documented) at patient's floor/unit and/or counseling patient: Coding Level of Care Code 22865 SUB INP/OBS CARE 3/50MIN Diagnoses Pneumonia J18.9 Bronchitis J40 Influenza A J10.1 Bronchiectasis J47.9 Hypokalemia E87.6
[2024-12-03] MEDS: AZITHROMYCIN 250 MG TAB PO ONE (13:02)
[2024-12-03 13:22] LABS: Phosphorus 2.3 mg/dl (2.5-4.9)
[2024-12-03] MEDS: LACTATED RINGER'S 1,000 ML IV SCH (18:14)
[2024-12-03] MEDS: SODIUM CHLOR 7% 4 ML NEB NEB SCH (20:47)
[2024-12-03] MEDS: guaiFENesin 600 MG TABCR PO SCH (21:11)
[2024-12-03] MEDS: POT PHOSPHATE MONOBASIC W/ SOD TAB PO SCH (21:12)
--- NOTE | 2024-12-03 21:21 | Electrocardiogram Report ---
Test Reason : Blood Pressure : */* mmHG Vent. Rate : 101 BPM Atrial Rate : 101 BPM P-R Int : 202 ms QRS Dur : 82 ms QT Int : 350 ms P-R-T Axes : 85 87 63 degrees QTcB Int : 453 ms Sinus tachycardia Biatrial enlargement Abnormal ECG When compared with ECG of 22-Jan-2023 18:05, Criteria for Anterior infarct are no longer Present Confirmed by Nickolas Guzman ([id number]) on 12/03/2024 9:21:48 PM Referred By: Jose Ruano Confirmed By: Nickolas Guzman
[2024-12-04 06:21] LABS: Basophils # (auto) 0.05 K/uL (0.00-0.20); Basophils % (auto) 0.4 %; Eosinophils # (auto) 0.19 K/uL (0.00-0.50); Eosinophils % (auto) 1.6 %; Hematocrit (blood only) 37.4 % (37.0-47.0); Hemoglobin 12.2 g/dl (12.0-16.0); Immature Granulocytes # (auto) 0.08 K/uL (0.01-0.20); Immature Granulocytes % (auto) 0.7 %; Lymphocytes # (auto) 0.74 K/uL (1.20-3.40); Mean Corpuscular Hemoglobin 28.5 pg (25.0-34.0); Mean Corpuscular Hgb Conc 32.6 g/dL (32.0-36.0); Mean Corpuscular Volume 87.4 fL (80.0-100.0); Mean Platelet Volume 8.7 fL (9.4-12.4); Monocytes # (auto) 0.81 K/uL (0.11-0.59); Monocytes % (auto) 6.6 %; Neutrophils # (auto) 10.38 K/uL (1.40-6.50); Neutrophils % (auto) 84.7 %; Platelet Count 411 K/uL (130-400); RDW Coefficient of Variation 15.3 % (11.5-14.5); RDW Standard Deviation 48.5 fL (36.4-46.3); Red Blood Count 4.28 M/uL (4.20-5.40); White Blood Count 12.25 K/ul (4.8-10.8)
[2024-12-04 06:40] LABS: BUN Creatinine Ratio 38.3 (10-20); Calcium 8.5 mg/dl (8.6-10.3); Creatinine Clr Calc Pharmacy 60.3 ml/min; Potassium 3.3 mmol/L (3.5-5.1)
[2024-12-04] MEDS: POTASSIUM CHLORIDE CRTAB 20 MEQ TABCR PO STA (08:23)
[2024-12-04] MEDS: AZITHROMYCIN 250 MG TAB PO SCH (08:24)
--- NOTE | 2024-12-04 10:32 | Hospitalist Progress Note ---
Date of Service December 04, 2024 Assessment & Plan (1) Pneumonia: (2) Bronchitis: (3) Influenza A: (4) Bronchiectasis: (5) Hypokalemia: Plan Patient is an 84-year-old female with past medical history of bronchiectasis, mitral valve prolapse, melanoma, chronic nephrolithiasis on HCTZ. She presented to the ER after being referred by her PCP for an elevated D-dimer. Patient has had cough, weakness, and dyspnea on exertion for approximately 5 weeks, she dated stated 5 weeks ago she tested positive for the flu at [facility], she did not receive Tamiflu treatment as well as outside of the 3-day window. Chest CTA was negative for PE however showed severe bronchiectasis, left upper lobe and left lower lobe infiltrate, bronchitis. She is being admitted for IV antibiotics and scheduled DuoNeb treatments. Bronchiectasis, pneumonia, history of pseudomonal colonization Follows with pulmonology Flu a positive. She was also flu a positive on 10/29/2024 Current exacerbation may represent superimposed pneumonia and residual flu positive Continue cefepime. Doxycycline converted to azithromycin. Leukocytosis downtrending, 13.95 on admission CTA with no evidence of PE, severe bronchiectasis, significant mucous plugging and multiple patches of the left upper lobe and lower lobes consistent with infectious bronchitis and pneumonia She was hypoxic to the low 80s on attempted ambulation in the ER. She is low 90s on room air at rest, at time of provider evaluation and walking back from the bathroom she is rapidly fatigued with tachypnea and clear shortness of breath. She is not safe to progress home to oral antibiotics at this time Blood cultures pending Sputum culture ordered, she has not been producing sputum/expectorating CRP 2.79 DuoNebs 4 times daily, and every 2 hours as needed Hypertonic saline twice daily Flutter valve/incentive spirometry continued Oral hydration encouraged Mucinex ordered - Discussed leidy for potential transition to outpatient care. Given her history of Pseudomonas her oral antibiotic options are limited, and she reports that she actually does not wish to be on a fluoroquinolone due to her high activity level and risk of tendon injury/rupture. Ideally this would be covered however we do not have any sensitivities available to help guide treatment further and she has not been expectorating sputum for culture. She does report that the history of Pseudomonas is questionable, notes that there is was some disagreement between her nursing home director over whether she had this when she was in [place]. She does not know the phone number of those providers of the top of her head but will attempt to obtain these today so that we can reach out for records. Depending on her progression options for treatment avoiding fluoroquinolones would be to complete an IV course via ultrasound-guided PIV, or alternatively referring pseudomonal coverage given no recent cultures for this and treating with cefpodoxime/azithromycin with close monitoring for worsening. Will attempt to clarify history from [place] records first. Hypokalemia Hydrochlorothiazide held 40 mEq given on admission Remains low end of normal Trend BMP, replete as needed HTN - HCTZ held for hypokalemia. Borderline high BP. Olmesartan added for BP control, and will plan to switch to this as outpatient as likely is better option given her hx of hypokalemia and BMI/intake Underweight, BMI 15.5 BMI 15.5 Weight 45 kg Dietitian following Phosphorus pending Albumin 4.0 - Replete electrolytes as needed daily. KCL PO added 15 AM Chronic stable issues: Chronic bilateral nephrolithiasis: Without evidence of obstruction or JESICA on admission. No evidence of UTI Mitral valve prolapse: No acute change in management, follows with cardiology as outpatient VTE: SCDs, dose reduced Lovenox due to age and BMI of 15 Diet: Regular Disposition: M/T Admission and Anticipated Discharge Date Admission Date: December 02, 2024 Subjective Seen at the bedside with joint nursing rounds. Patient still feels tired and not quite ready to go home but is hopeful to be able to progress to discharge in the near future. Her oxygenation is better. Is still somewhat dyspneic with activity. Has not had productive cough. Feels tremulous. Has some difficulty taking potassium supplements but has been able to do. Did discuss potential transition to outpatient care. Given her history of Pseudomonas her oral antibiotic options are limited, and she reports that she actually does not wish to be on a fluoroquinolone due to her high activity level and risk of tendon injury/rupture. Ideally this would be covered however we do not have any sensitivities available to help guide treatment further and she has not been expectorating sputum for culture. She does report that the history of Pseudomonas is questionable, notes that there is was some disagreement between her nursing home director over whether she had this when she was in [place]. She does not know the phone number of those providers of the top of her head but will attempt to obtain these today so that we can reach out for records. Depending on her progression options for treatment avoiding fluoroquinolones would be to complete an IV course via ultrasound-guided PIV, or alternatively referring pseudomonal coverage given no recent cultures for this and treating with cefpodoxime/azithromycin with close monitoring for worsening. Will attempt to clarify history from [place] records first. Physical Exam Physical Exam: General: A&Ox3.Cooperative. Thin. HEENT: Atraumatic, normocephalic. Patient hearing grossly intact Pulm: Globally diminished but without acte wheezes/rales/rhonchi. No increased work of breathing. No respiratory distress. Improving WoB but still dypsneic on conversation/activity Cardiac: RRR, -mrg. Radial pulses intact and symmetrical. Extremities: Moves all extremities equally. Results & Data Results & Data Vital Signs (Past 12 Hours) Vital Signs Temp Pulse Pulse Resp BP Pulse Ox O2 Del Method 12/04/24 07:51 37 C 86 16 179/86 H 98 Room Air 12/04/24 07:15 88 18 94 Nasal Cannula 12/04/24 07:12 84 12/04/24 00:04 89 12/03/24 23:00 36.8 C 79 18 147/73 H 96 Room Air PG Care Time/CCT Total # of Minutes Spent Total Time Spent with Patient: Total time spent is greater than 50% in coordination of care (as documented) at patient's floor/unit and/or counseling patient: Coding Level of Care Code 38159 SUB INP/OBS CARE 3/50MIN Diagnoses Pneumonia J18.9 Bronchitis J40 Influenza A J10.1 Bronchiectasis J47.9 Hypokalemia E87.6
[2024-12-04] MEDS: LOSARTAN POTASSIUM 50 MG TAB PO SCH (11:10)
[2024-12-04] MEDS: DOXYCYCLINE HYCLATE 100 MG in DEXTROSE 5% MINI-B 100 ML IV SCH (20:29)
[2024-12-05 07:16] LABS: Basophils # (auto) 0.07 K/uL (0.00-0.20); Basophils % (auto) 0.7 %; Eosinophils # (auto) 0.16 K/uL (0.00-0.50); Eosinophils % (auto) 1.6 %; Hematocrit (blood only) 40.7 % (37.0-47.0); Hemoglobin 13.1 g/dl (12.0-16.0); Immature Granulocytes # (auto) 0.05 K/uL (0.01-0.20); Immature Granulocytes % (auto) 0.5 %; Lymphocytes # (auto) 0.66 K/uL (1.20-3.40); Lymphocytes % (auto) 6.4 %; Mean Corpuscular Hemoglobin 28.5 pg (25.0-34.0); Mean Corpuscular Hgb Conc 32.2 g/dL (32.0-36.0); Mean Corpuscular Volume 88.7 fL (80.0-100.0); Mean Platelet Volume 8.6 fL (9.4-12.4); Monocytes # (auto) 0.69 K/uL (0.11-0.59); Monocytes % (auto) 6.7 %; Neutrophils # (auto) 8.64 K/uL (1.40-6.50); Neutrophils % (auto) 84.1 %; Platelet Count 455 K/uL (130-400); RDW Coefficient of Variation 15.3 % (11.5-14.5); RDW Standard Deviation 49.6 fL (36.4-46.3); Red Blood Count 4.59 M/uL (4.20-5.40); White Blood Count 10.27 K/ul (4.8-10.8)
[2024-12-05 07:31] LABS: BUN Creatinine Ratio 28.3 (10-20); Creatinine Clr Calc Pharmacy 51.5 ml/min; Potassium 3.6 mmol/L (3.5-5.1)
--- NOTE | 2024-12-05 08:29 | Hospitalist Progress Note ---
Date of Service December 05, 2024 Assessment & Plan (1) Pneumonia: (2) Bronchitis: (3) Influenza A: (4) Bronchiectasis: (5) Hypokalemia: Plan Patient is an 84-year-old female with past medical history of bronchiectasis, mitral valve prolapse, melanoma, chronic nephrolithiasis on HCTZ. She presented to the ER after being referred by her PCP for an elevated D-dimer. Patient has had cough, weakness, and dyspnea on exertion for approximately 5 weeks, she dated stated 5 weeks ago she tested positive for the flu at [facility], she did not receive Tamiflu treatment as well as outside of the 3-day window. Chest CTA was negative for PE however showed severe bronchiectasis, left upper lobe and left lower lobe infiltrate, bronchitis. She is being admitted for IV antibiotics and scheduled DuoNeb treatments. Bronchiectasis, pneumonia, history of pseudomonal colonization Follows with pulmonology Flu a positive. She was also flu a positive on 10/29/2024 Current exacerbation may represent superimposed pneumonia and residual flu positive Continue cefepime/doxycycline Clinically progressing Transition to Levaquin as outpatient antibiotic choice based on past pseudomonal sputum positive with sensitivity to fluoroquinolones. Records scanned sent for extraction CTA with significant bronchiectasis, mucous plugging, and irregular patchy infiltrates of the left upper and lower lobes consistent with infectious bronchitis/pneumonia Will need pulmonary follow-up and reimaging to ensure improvement and no underlying malignancy Continue nebs as needed, flutter valve, hypertonic saline twice daily - Sputum culture pending Enterococcal UTI Patient endorsed polyuria although reported this was normal for her she was going very frequently. Evening of 12/04 - 12/05 was up every hour voiding UC speciated for Enterococcus faecalis this likely has not been covered due to intrinsic resistance to cephalosporins. Given complicated antibiotic course and progression patient prefers to wait for sensitivities rather than discharge home with recall potential if ampicillin resistant which is reasonable Amoxicillin 3 times daily added for enterococcal coverage at this time. Anticipate sensitivities available over the next 12/24 hours Hypokalemia Repleted, resolved Thiazide has been switched to ARB HTN -Blood pressure normalized tolerating losartan well. 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 Patient still feels tired and not quite ready to go home but is hopeful to be able to progress to discharge in the near future. Her oxygenation is better. Is still somewhat dyspneic with activity. Has not had productive cough. Feels tremulous. Has some difficulty taking potassium supplements but has been able to do. Seen at the bedside. She is progressively feeling better, feels her strength is better. No fevers or chills but was up all night with dysuria every hour. UCx has speciated for Enterococcus faecalis, discussed with patient that this is l ikely not covered despite her broad antibiotics due to intrinsic cephalosporin resistance. Added amoxicillin to which patient is agreeable and given significant symptoms and complicated antibiotic history will monitor speciation's are available likely by tomorrow morning. Agreeable to this. Otherwise doing well, breathing gradually improving although still somewhat dyspneic with exertion and conversation saturations are overall improved. No fevers chills or sweats overnight. She is beginning to expectorate sputum, did discuss will try to catch a sputum sample Physical Exam Physical Exam: General: A&Ox3.Cooperative. Thin. HEENT: Atraumatic, normocephalic. Patient hearing grossly intact. Vision grossly intact Pulm: Globally diminished but without acte wheezes/rales/rhonchi. No increased work of breathing. No respiratory distress. Improving WoB but still dypsneic on conversation/activity Cardiac: RRR, -mrg. Radial pulses intact and symmetrical. Extremities: Moves all extremities equally. Results & Data Results & Data Vital Signs (Past 12 Hours) Vital Signs Temp Pulse Pulse Resp BP BP Pulse Ox 12/05/24 07:50 36.4 C L 76 16 138/76 94 12/05/24 07:38 81 20 95 12/05/24 07:08 77 12/05/24 03:30 36.4 C L 78 16 147/74 H 93 12/04/24 23:30 36.5 C 92 H 18 154/80 H 93 12/04/24 22:05 82 O2 Del Method 12/05/24 07:50 Room Air 12/05/24 07:38 Room Air 12/05/24 07:08 12/05/24 03:30 Room Air 12/04/24 23:30 Room Air 12/04/24 22:05 PG Care Time/CCT Total # of Minutes Spent Total Time Spent with Patient: Total time spent is greater than 50% in coordination of care (as documented) at patient's floor/unit and/or counseling patient: Coding Level of Care Code 91573 SUB INP/OBS CARE 3/50MIN Diagnoses Pneumonia J18.9 Bronchitis J40 Influenza A J10.1 Bronchiectasis J47.9 Hypokalemia E87.6
[2024-12-05] MEDS: AMOXICILLIN 500 MG CAP PO SCH (08:37)
[2024-12-06 06:17] LABS: Basophils # (auto) 0.06 K/uL (0.00-0.20); Basophils % (auto) 0.7 %; Eosinophils # (auto) 0.21 K/uL (0.00-0.50); Eosinophils % (auto) 2.3 %; Hematocrit (blood only) 37.2 % (37.0-47.0); Hemoglobin 12.3 g/dl (12.0-16.0); Immature Granulocytes # (auto) 0.06 K/uL (0.01-0.20); Immature Granulocytes % (auto) 0.7 %; Lymphocytes # (auto) 0.77 K/uL (1.20-3.40); Lymphocytes % (auto) 8.5 %; Mean Corpuscular Hemoglobin 29.3 pg (25.0-34.0); Mean Corpuscular Hgb Conc 33.1 g/dL (32.0-36.0); Mean Corpuscular Volume 88.6 fL (80.0-100.0); Mean Platelet Volume 8.7 fL (9.4-12.4); Monocytes # (auto) 0.79 K/uL (0.11-0.59); Monocytes % (auto) 8.7 %; Neutrophils # (auto) 7.14 K/uL (1.40-6.50); Neutrophils % (auto) 79.1 %; Platelet Count 412 K/uL (130-400); RDW Coefficient of Variation 15.2 % (11.5-14.5); RDW Standard Deviation 49.1 fL (36.4-46.3); White Blood Count 9.03 K/ul (4.8-10.8)
[2024-12-06 06:51] LABS: BUN Creatinine Ratio 31.5 (10-20); Calcium 8.9 mg/dl (8.6-10.3); Creatinine Clr Calc Pharmacy 51.1 ml/min; Potassium 3.9 mmol/L (3.5-5.1)
--- NOTE | 2024-12-06 09:02 | Hospitalist Progress Note ---
Date of Service December 06, 2024 Assessment & Plan (1) Pneumonia: (2) Bronchitis: (3) Influenza A: (4) Bronchiectasis: (5) Hypokalemia: Plan Patient is an 84-year-old female with past medical history of bronchiectasis, mitral valve prolapse, melanoma, chronic nephrolithiasis on HCTZ. She presented to the ER after being referred by her PCP for an elevated D-dimer. Patient has had cough, weakness, and dyspnea on exertion for approximately 5 weeks, she dated stated 5 weeks ago she tested positive for the flu at [facility], she did not receive Tamiflu treatment as well as outside of the 3-day window. Chest CTA was negative for PE however showed severe bronchiectasis, left upper lobe and left lower lobe infiltrate, bronchitis. She is being admitted for IV antibiotics and scheduled DuoNeb treatments. Bronchiectasis, pneumonia, history of pseudomonal colonization Follows with pulmonology Flu a positive. She was also flu a positive on 10/29/2024 Current exacerbation may represent superimposed pneumonia and residual flu positive Continue cefepime/doxycycline Clinically progressing Transition to Levaquin as outpatient antibiotic choice based on past pseudomonal sputum positive with sensitivity to fluoroquinolones. Records scanned sent for extraction CTA with significant bronchiectasis, mucous plugging, and irregular patchy infiltrates of the left upper and lower lobes consistent with infectious bronchitis/pneumonia Will need pulmonary follow-up and reimaging to ensure improvement and no underlying malignancy Continue nebs as needed, flutter valve, hypertonic saline twice daily - Sputum culture pending Enterococcal UTI Patient endorsed polyuria although reported this was normal for her she was going very frequently. Evening of 12/04 - 12/05 was up every hour voiding UC speciated for Enterococcus faecalis this likely has not been covered due to intrinsic resistance to cephalosporins. Given complicated antibiotic course and progression patient prefers to wait for sensitivities rather than discharge home with recall potential if ampicillin resistant which is reasonable Amoxicillin 3 times daily added for enterococcal coverage at this time. Anticipate sensitivities available over the next 12/24 hours Hypokalemia Repleted, resolved Thiazide has been switched to ARB HTN -Blood pressure normalized tolerating losartan well. 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 Underweight, BMI 15.5 BMI 15.5 Weight 45 kg Dietitian following Phosphorus pending Albumin 4.0 - Replete electrolytes as needed daily Chronic stable issues: Chronic bilateral nephrolithiasis: Without evidence of obstruction or JESICA on admission Mitral valve prolapse: No acute change in management, follows with cardiology as outpatient VTE: SCDs, dose reduced Lovenox due to age and BMI of 15 Diet: Regular Disposition: M/T Admission and Anticipated Discharge Date Admission Date: December 02, 2024 Results & Data Results & Data Vital Signs (Past 12 Hours) Vital Signs Temp Pulse Pulse Resp BP BP Pulse Ox 12/06/24 08:13 97.3 F L 83 19 167/70 H 99 12/06/24 08:08 90 20 94 12/06/24 07:24 12/06/24 07:20 97.3 F L 89 22 187/93 H 186/85 H 94 12/06/24 07:02 78 12/06/24 04:00 97.7 F 87 18 160/87 H 93 12/06/24 00:22 88 12/05/24 23:00 98.2 F 85 18 150/74 H 94 12/05/24 22:03 O2 Del Method 12/06/24 08:13 Room Air, Nebulizer 12/06/24 08:08 Room Air 12/06/24 07:24 Room Air 12/06/24 07:20 Room Air 12/06/24 07:02 12/06/24 04:00 Room Air 12/06/24 00:22 12/05/24 23:00 Room Air 12/05/24 22:03 Room Air PG Care Time/CCT Total # of Minutes Spent Total Time Spent with Patient: Total time spent is greater than 50% in coordination of care (as documented) at patient's floor/unit and/or counseling patient: Coding Diagnoses Pneumonia J18.9 Bronchitis J40 Influenza A J10.1 Bronchiectasis J47.9 Hypokalemia E87.6
[2024-12-06 11:06] VITALS: BP 170/81; PULSE 97; RESP 18; TEMP 97.7; O2SAT 94
--- NOTE | 2024-12-06 16:44 | Discharge Summary ---
Discharge Summary Date of Service December 06, 2024 Principal Dx & Hospital Course #1 = Principal Diagnosis (1) Pneumonia: (2) Bronchitis: (3) Influenza A: (4) Bronchiectasis: (5) Hypokalemia: Plan Patient is an 84-year-old female with past medical history of bronchiectasis, mitral valve prolapse, melanoma, chronic nephrolithiasis on HCTZ. She presented to the ER after being referred by her PCP for an elevated D-dimer. Patient has had cough, weakness, and dyspnea on exertion for approximately 5 weeks, she dated stated 5 weeks ago she tested positive for the flu at [facility], she did not receive Tamiflu treatment as well as outside of the 3-day window. Chest CTA was negative for PE however showed severe bronchiectasis, left upper lobe and left lower lobe infiltrate, bronchitis. She is being admitted for IV antibiotic s and scheduled DuoNeb treatments. Bronchiectasis, pneumonia, history of pseudomonal colonization Follows with pulmonology Flu a positive. She was also flu a positive on 10/29/2024 Current exacerbation may represent superimposed pneumonia and residual flu positive did recieve cefepime/doxycycline Transition to Levaquin as outpatient antibiotic choice based on past pseudomonal sputum positive with sensitivity to fluoroquinolones. CTA with significant bronchiectasis, mucous plugging, and irregular patchy infiltrates of the left upper and lower lobes consistent with infectious bronchitis/pneumonia Will need pulmonary follow-up and reimaging to ensure improvement and no underlying malignancy Enterococcal UTI sensitivities available suggest levaquin is suitable Hypokalemia Repleted, resolved home on ARB HTN home on cozaar Underweight, BMI 15.5 BMI 15.5 educated and counselled on nutritional supplements Chronic stable issues: Chronic bilateral nephrolithiasis: Without evidence of obstruction or JESICA on admission Mitral valve prolapse: No acute change in management, follows with cardiology as outpatient VTE: SCDs, dose reduced Lovenox due to age and BMI of 15 Diet: Regular Disposition: M/T Admission HPI Per Admitting Provider Patient is an 84-year-old female with past medical history of bronchiectasis, mitral valve prolapse, melanoma, chronic nephrolithiasis on HCTZ. She presented to the ER after being referred by her PCP for an elevated D-dimer. Patient has had cough, weakness, and dyspnea on exertion for approximately 5 weeks, she dated stated 5 weeks ago she tested positive for the flu at [facility], she did not receive Tamiflu treatment as well as outside of the 3-day window. Chest CTA was negative for PE however showed severe bronchiectasis, left upper lobe and left lower lobe infiltrate, bronchitis. She is being admitted for IV antibiotics and scheduled DuoNeb treatments. Patient seen at bedside with her present. She stated that the symptoms have been ongoing for 5 weeks after she tested positive for the flu. She did not think much of it as she has chronic cough and chronic dyspnea on exertion, however acutely worsened. She also endorses weakness. She denies any sick contacts however lives at [facility] and could have been around people that were sick. She endorses dizziness and lightheadedness for the past few days, her has been walking with her just to be safe. She does endorse chills, however unchanged. She stated she did receive an antibiotic that ended with -cillin recently for UTI. Records show Augmentin. She denies any urinary symptoms, UA ordered on admission. Patient denies fever, chest pain, abdominal pain, nausea, vomiting, diarrhea. She took her morning medications but is due for her evening medications. She wishes to be DNR/DNI. Discharge Plan Discharge Items Patient Disposition: Home - Home Health Services Reason For Visit: PNA, BRONCHITIS Discharge Diagnosis: influenza A pneumonia enterococcus urinary infection Activity: Per Instructions section Activity Comment: slowly increase activity Non-emergency contact: Primary Care Provider Call non-emergency contact if: your symptoms worsen Follow-up/Referrals: Jose Ruano MD [Primary Care Provider] - Diet: Regular Diet Comment: please have daily nutritional supplements Addtl Attending Provider Instructions: complete additional 3 days of oral antibiotics start 12/07/24 slowly increase exercise capacity follow up with your primary care in one week Pending Studies at Discharge: No Stand-Alone Forms: My [employer], Smoking Cessation Medications and DC Order Prescriptions: New losartan 50 mg Tablet 50 mg PO QAM Qty: 30 4RF levofloxacin 500 mg tablet 500 mg PO DAILY 3 Days Qty: 3 0RF Continued cholecalciferol (vitamin D3) 25 mcg (1,000 unit) capsule 1,000 unit PO BID potassium chloride 20 mEq tablet extended release 20 meq PO BID Qty: 180 3RF (DME) Flutter Valve Device See Rx Instructions .ROUTE .MEDSUPPLY Qty: 1 0RF Rx Instructions: As directed albuterol sulfate 90 mcg/actuation HFA aerosol inhaler 2 inh inhalation QID PRN (Reason: shortness of breath or wheezing) Qty: 8.5 3RF lysine [L-Lysine] 500 mg tablet 1,000 mg PO [facility] zinc gluconate,zinc picolinate 30 mg capsule 30 mg PO QAM quercetin 500 mg capsule 800 mg PO BID alendronate [Fosamax] 70 mg tablet 70 mg PO .weekly Rx Instructions: TAKE THIS MED EVERY FRIDAY MORNING BEFORE BREAKFAST ferrous sulfate 325 mg (65 mg iron) tablet,delayed release (DR/EC) 325 mg PO .COMPLEX Rx Instructions: 325 mg orally 3 times weekly; hydrochlorothiazide 25 mg tablet 25 mg PO DAILY Qty: 90 3RF cyanocobalamin (vitamin B-12) [Vitamin B-12] 1,000 mcg Tablet 1,000 mcg PO 3XWK turmeric-turmeric root extract 450-50 mg Capsule 1 cap PO QAM glutathione 500 mg Capsule 500 mg PO HS Discharge Orders: Discharge Order (Routine); Ordered 12/06/24 Ordered By: Héctor German/Other Patient Handouts: Losartan Oral Tablet, Levofloxacin Oral Tablet Admission Data Admit Date/Time: 12/02/24 21:04 Attending Provider: Héctor Almanza Admit Provider: Reji Aguilar Primary Care Provider: Jose Ruano Other Providers: Reji Aguilar Other Interventions: Discharge Summary Assessment (RN) Last Done: 12/06/24 11:57 Hospital Stay Data Consultations 12/02/24 19:28 ED Decision to Admit Stat Diagnostic Imagining Performed 12/02/24 17:08 CT angio chest PE protocol Stat Pending Results Patient Have Any Pending Studies at Discharge: No Discharge Instructions Given to Patient (Per Discharging Provider) complete additional 3 days of oral antibiotics start 12/07/24 slowly increase exercise capacity follow up with your primary care in one week Total Time Total Time Spent Total Time Spent (In Minutes): It required greater than 30 minutes to prepare this patient for discharge. Coding Level of Care Code 60741 INP/OBS DISCH >30 MIN Diagnoses Pneumonia J18.9 Bronchitis J40 Influenza A J10.1 Bronchiectasis J47.9 Hypokalemia E87.6
[2024-12-06] MEDS ORDERED: ALBUT/IPRATROP 3MG/0.5MG NEB 3 ML VIAL NEB SCH (19:00)
== END 2024-12-06 13:26 | disposition home or self-care (01) | DRG 194 ==
LOC: ED 16:27 → SUATTDRO 21:04 → EDINP 21:04 → 2N 23:44